=== PATIENT | female | born 1950 | race Caucasian/White ===

== ENCOUNTER 2020-04-23 17:43 | Inpatient (IN) | payer MEDICARE, MEDICAID, SELFPAY ==
--- NOTE | 2020-04-23 | XR_ITS ---
EXAMINATION: 1. LEFT WRIST. 2. LEFT ELBOW. CLINICAL INFORMATION: Fracture of distal radius and ulna COMPARISON: Left forearm today, 7:05 PM TECHNIQUE: 1. Left wrist. 3 views 2. Left elbow. 3 views FINDINGS: 1. Left wrist. There is a comminuted intra-articular displaced fracture of the distal radius and ulna. There is dorsal angulation and dorsal displacement of distal fracture fragment. 2. Left elbow. No fracture dislocation of the elbow. No joint effusion. IMPRESSION: 1. Left wrist. Comminuted intra-articular displaced fracture of the distal radius and ulna. 2. Left elbow. No acute abnormality.
--- NOTE | 2020-04-23 | XR_ITS ---
EXAMINATION: XR WRIST, LEFT CLINICAL INFORMATION: Follow-up fracture post reduction COMPARISON: Same day earlier study TECHNIQUE: Two views of the left wrist. FINDINGS: No evidence of change in fracture position. Comminuted fracture distal radius. Displacement of the proximal fracture fragment ventrally. Mild ventral angulation. There is impaction. Ulnar fracture is unchanged in position. Impacted. IMPRESSION: Casted fractures of the distal radius and ulna. No significant change in position
[2020-04-23 17:55] VITALS: BP 104/65; PULSE 127; PULSE 93; RESP 16; TEMP 36.7; O2SAT 97; O2SAT 98; BMI 48.8
--- NOTE | 2020-04-23 19:00 | XR_ITS ---
EXAMINATION: XR FOREARM, LEFT CLINICAL INFORMATION: Fall COMPARISON: None TECHNIQUE: AP and lateral views of the left forearm were obtained. FINDINGS: There is a impacted fracture of the distal radius as well as ulna with dorsal angulation and lateral displacement. It is difficult to say if the radius fracture involves the radiocarpal joint. Wrist radiographs would be helpful. Marked soft tissue swelling is seen. The remainder of the radius and ulna appear normal IMPRESSION: Fractures of the distal radius and ulna as described above
--- NOTE | 2020-04-23 19:02 | ED.FALL ---
HPI - Fall General Chief Complaint: Fall <Shiraz Dainels DO - Last Filed: 04/24/20 05:32> Stated Complaint: FALL <Shiraz Daniels DO - Last Filed: 04/24/20 05:32> Time Seen by Provider: 04/23/20 19:02 <Shiraz Daniels DO - Last Filed: 04/24/20 05:32> Source: patient <Joan Trevino NP - Last Filed: 04/24/20 03:31> Mode of arrival: EMS <Joan Trevino NP - Last Filed: 04/24/20 03:31> Limitations: no limitations <Joan Trevino NP - Last Filed: 04/24/20 03:31> History of Present Illness HPI Narrative: 69-year-old female presents the emergency department with left arm pain, visible bruising and deformity after a fall. Stated that she was at home, tripped over her walker and landed on her outstretched arm. She does not report hitting her head, does not report loss of consciousness, but states to have 10/10 pain to the left wrist. <Joan Trevino NP - Last Filed: 04/24/20 03:31> MD complaint: fall <Joan Trevino NP - Last Filed: 04/24/20 03:31> Onset (ago): minute(s) (Just prior to arrival) <Joan Trevino NP - Last Filed: 04/24/20 03:31> Fall from: standing <Joan Trevino NP - Last Filed: 04/24/20 03:31> Fall witnessed: no <Joan Trevino NP - Last Filed: 04/24/20 03:31> Place fall occurred: home <Joan Trevino NP - Last Filed: 04/24/20 03:31> Loss of consciousness: none <Joan Trevino NP - Last Filed: 04/24/20 03:31> Prolonged down time: no <Joan Trevino NP - Last Filed: 04/24/20 03:31> Symptoms prior to fall: none <Joan Trevino NP - Last Filed: 04/24/20 03:31> Context: tripped/slipped <Joan Trevino NP - Last Filed: 04/24/20 03:31> Location of injury: other (Left wrist, elbow) <Joan Trevino NP - Last Filed: 04/24/20 03:31> Severity: severe <Joan Trevino NP - Last Filed: 04/24/20 03:31> Severity scale (1-10): 10 <Joan Trevino NP - Last Filed: 04/24/20 03:31> Quality: aching and throbbing <Joan Trevino NP - Last Filed: 04/24/20 03:31> Associated symptoms (after fall): denies <Joan Trevino NP - Last Filed: 04/24/20 03:31> Related Data Home Medications: Home Medications Medication Instructions Recorded Confirmed tramadol 50 - 100 mg PO Q6-8H PRN 04/23/20 04/24/20 allopurinol 1 tab PO BID 04/24/20 04/24/20 cholecalciferol (vitamin D3) 25 mcg PO DAILY 04/24/20 04/24/20 cyanocobalamin (vitamin B-12) 1 tab PO DAILY 04/24/20 04/24/20 [Vitamin B-12] furosemide 1 tab PO BID 04/24/20 04/24/20 hydroxyzine HCl 25 mg PO QID PRN 04/24/20 04/24/20 omeprazole 1 cap PO BID 04/24/20 04/24/20 spironolactone 1 tab PO DAILY 04/24/20 04/24/20 thiamine mononitrate (vit B1) 1 tab PO DAILY 04/24/20 04/24/20 [Vitamin B-1 (mononitrate)] <DO Stewart Menard Last Filed: 04/24/20 05:32> Allergies/Adverse Reactions: Allergies Allergy/AdvReac Type Severity Reaction Status Date / Time No Known Allergies Allergy Unverified 04/01/20 19:02 [No Known Allergies*] <DO Stewart Menard Last Filed: 04/24/20 05:32> Review of Systems Review of Systems: Constitutional: No Fever, No Chills ENT/Mouth: No Ear Pain, No Hoarseness, No sore throat Eyes: No Eye Pain, No Swelling, No Redness, No Foreign Body Cardiovascular: No Chest Pain, No SOB Respiratory: No Cough, No Dyspnea Gastrointestinal: No Nausea, No Vomiting, No Diarrhea, No abdominal Pain Genitourinary: No Dysuria, No Hematuria Musculoskeletal: positive joint pain to the left wrist, left elbow, swelling to the left wrist, No Myalgias Skin: Abrasion and ecchymosis noted to left lateral elbow, ecchymosis noted to the left wrist, No Skin lacerations, No rash Neuro: No Weakness, No Numbness, No Paresthesias, No Loss of Consciousness, No Dizziness, No Headache Psych: No Anxiety/Panic, No Depression Heme/Lymph: no easy bruising, no Lymphadenopathy Endocrine: No Polyuria, No Polydipsia <Joan Trevino NP - Last Filed: 04/24/20 03:31> FORMERLY [facility], [facility] Past Medical History Attestation statement: The following information was validated with the patient. <Joan Trevino NP - Last Filed: 04/24/20 03:31> Medical History: Medical History No known health problems <Shiraz Daniels DO - Last Filed: 04/24/20 05:32> Social History Social History: Social History Alcohol intake: former Smoked in Last 30 Days: No Use of substances other than those prescribed or required for medical reasons: No Advance Directives: No Advance Directives Information Provided: Yes <Shiraz Daniels DO - Last Filed: 04/24/20 05:32> Physical Exam Vital Signs and I&O and Narrative: Vital Signs and I&O: Vital Signs Temp 98 F 04/24/20 02:19 Pulse 98 04/24/20 05:31 Resp 16 04/24/20 05:31 BP 91/70 04/24/20 05:31 Pulse Ox 94 04/24/20 02:19 Intake & Output 04/23/20 04/23/20 04/24/20 06:59 18:59 06:59 Intake Total 1000 / 1000 Balance 1000 / 1000 Weight 113.469 kg Intake: Intake, IV Amoun t 1000 / 1000 0.9 % Sodium C hloride 1,000 ml 1000 / 1000 @ 999 mls/hr I VCONT .Q1H1M [facility] Rx#:[id number] Body Mass Index 48.8 <Shiraz Daniels DO - Last Filed: 04/24/20 05:32> Vital Signs and I&O: Vital Signs Temp 98 F 04/24/20 02:19 Pulse 98 04/24/20 05:31 Resp 16 04/24/20 05:31 BP 91/70 04/24/20 05:31 Pulse Ox 94 04/24/20 02:19 Intake & Output 04/23/20 04/23/20 04/24/20 06:59 18:59 06:59 Intake Total 1000 / 1000 Balance 1000 / 1000 Weight 113.469 kg Intake: Intake, IV Amoun t 1000 / 1000 0.9 % Sodium C hloride 1,000 ml 1000 / 1000 @ 999 mls/hr I VCONT .Q1H1M [facility] Rx#:[id number] Body Mass Index 48.8 <Joan Trevino NP - Last Filed: 04/24/20 03:31> Appearance: Alert. Oriented X3. Mild distress secondary to pain to the left arm. Eyes: Pupils equal, round and reactive to light. ENT: Pharynx normal. Neck: Normal inspection. Neck supple. CVS: Normal heart rate and rhythm. Pulses normal. Respiratory: No respiratory distress. Breath sounds normal. Abdomen: Soft and nontender. Skin: Skin warm and dry. Normal skin color. Normal skin turgor. Extremities: Left elbow abrasion and ecchymosis, left wrist deformity with ecchymosis circumferentially and down the fingers. Has full range of motion and brisk capillary refill. Neuro: Oriented X 3. No motor deficit. No sensory deficit. <Joan Trevino NP - Last Filed: 04/24/20 03:31> Course Course Course Narrative: at 02:30 sign-out was given to me in regards to patient status post fall and was going to wait for Case Management the morning. Basic labs came back positive for troponin. EKG shows interpreted by me as sinus tachycardia at 01:03 with a rightward axis no ST T elevations or depressions. Re-examine the patient shows no current chest pain at this point will need to be admitted for further evaluation I spoke with Dr. Askew for admission <Shiraz Daniels DO - Last Filed: 04/24/20 05:32> 69-year-old female presents via EMS with fall and injury to the left upper extremity, elbow, and wrist after tripping over her walker. At this time she does not describe any chest pain or pressure, palpitations, shortness of breath, abdominal pain, abdominal distention, dizziness, lightheadedness, or weakness. She reports that this was a stupid mistake and that she was moving too fast. At this time she is reporting 10/10 pain to the left forearm and wrist. X-rays positive for displaced fracture of the radius and ulna. Contact with on-call Orthopedics, they're requesting that we reduce and patient will follow-up in the office on Sunday. Case discussed with Dr. Levin. Description of reduction explained to patient, patient agrees to plan of care, we'll use IM ketamine. Consent was signed. Dr. Levin at bedside, attempted to reduce fracture, multiple attempts made by this NATURE PHOTOGRAPHER and Dr. Levin. Patient was splinted, repeat x-ray does not show any significant reduction. Second discussion with Orthopedics, plan continues to stay the same, they request that patient follow-up on Sunday in the office. We'll order case management director social, CBC, Chem 7, EKG and troponin. Evaluation of capillary refill after splinting, neurovascularly intact. Sign out to Dr. Daniels at 2:00 a.m.. <Joan Trevino NP - Last Filed: 04/24/20 03:31> Procedures Orthopedic Fracture Reduction Fracture #1: Time Out Performed: Yes <DULCE Escalera Last Filed: 04/24/20 03:31> Side: left <Joan Trevino NP - Last Filed: 04/24/20 03:31> Fracture Reduction Location: radius and ulna <DULCE Escalera Last Filed: 04/24/20 03:31> Analgesia: procedural sedation and nerve block <Joan Trevino NP - Last Filed: 04/24/20 03:31> Technique: direct manipulation <DULCE Escalera Last Filed: 04/24/20 03:31> Post Reduction X-rays Demonstrate: other (No significant reduction) <DULCE Escalera Last Filed: 04/24/20 03:31> Post-reduction neuro exam: intact <Joan Trevino NP - Last Filed: 04/24/20 03:31> Post-reduction vascular exam: intact <Joan Trevino NP - Last Filed: 04/24/20 03:31> Splint Applied: Yes <Joan Trevino NP - Last Filed: 04/24/20 03:31> Patient Tolerated Procedure: well <Joan Trevino NP - Last Filed: 04/24/20 03:31> MDM - Fall Differential Diagnosis Differential diagnosis: Likely fracture and compression fracture <Joan Trevino NP - Last Filed: 04/24/20 03:31> Medical Records Attestation: I reviewed the patient's medical records. <Joan Trevino NP - Last Filed: 04/24/20 03:31> Lab Data Attestation: I reviewed the patient's lab results. <Joan Trevino NP - Last Filed: 04/24/20 03:31> Result diagrams: : 04/24/20 02:00 04/24/20 02:00 <Shiraz Daniels DO - Last Filed: 04/24/20 05:32> Labs: Lab Results 04/24/20 04/24/20 04/24/20 Range/Units 02:00 02:00 02:00 WBC 8.8 (4.8-10.8) X10*3/uL RBC 3.80 L (4.20-5.50) X10*6/uL Hgb 12.4 (12.0-16.0) g/dl Hct 37.7 (37-47) % MCV 99.2 H (80-98) fL MCH 32.6 (27.0-33.0) pg MCHC 32.9 (31.0-35.0) g/dl RDW 14.2 (11.0-16.0) % Plt Count 125 L (160-400) X10*3/uL MPV 10.4 (9.4-12.3) fL Immature Gran % (Auto) 0.5 H (0.0-0.4) % Neut % (Auto) 81.6 H (45-73) % Lymph % (Auto) 9.7 L (20-40) % [place] % (Auto) 7.8 (2-11) % Eos % (Auto) 0.1 (0-4) % Baso % (Auto) 0.3 (0-2) % Lymph # (Auto) 0.9 L (1.2-4.9) X10*3/uL [place] # (Auto) 0.7 (0.1-1.2) X10*3/uL Eos # (Auto) 0.0 (0.0-0.4) X10*3/uL Baso # (Auto) 0.0 (0.0-0.2) X10*3/uL Abs Immat Gran (auto) 0.04 H (0.00-0.03) X10*3/uL Absolute Neuts (auto) 7.2 (2.0-8.3) X10*3/uL Absolute Nucleated RBC 0.000 (0.0-0.012) X10*3/uL Nucleated RBC % (auto) 0.0 (0.0-0.2) /100WBC Sodium 138 (135-145) mmol/L Potassium 4.3 (3.3-5.1) mmol/l Chloride 96 (96-108) mmol/L Carbon Dioxide 32 H (22-29) mmol/L Anion Gap 14 (12-20) BUN 17 H (9-16) mg/dL Creatinine 1.39 (0.5-1.4) mg/dL Estim Creat Clear Calc 44.4 Estimated GFR 38 Random Glucose 105 (60-115) mg/dL Calcium 7.3 L (8.4-10.2) mg/dL Total Creatine Kinase 92 (26-140) U/L Troponin I High Sens 411.7 H (<3.5-17.0) ng/L <Shiraz Daniels, DO - Last Filed: 04/24/20 05:32> Lab Results 04/24/20 04/24/20 04/24/20 Range/Units 02:00 02:00 02:00 WBC 8.8 (4.8-10.8) X10*3/uL RBC 3.80 L (4.20-5.50) X10*6/uL Hgb 12.4 (12.0-16.0) g/dl Hct 37.7 (37-47) % MCV 99.2 H (80-98) fL MCH 32.6 (27.0-33.0) pg MCHC 32.9 (31.0-35.0) g/dl RDW 14.2 (11.0-16.0) % Plt Count 125 L (160-400) X10*3/uL MPV 10.4 (9.4-12.3) fL Immature Gran % (Auto) 0.5 H (0.0-0.4) % Neut % (Auto) 81.6 H (45-73) % Lymph % (Auto) 9.7 L (20-40) % [place] % (Auto) 7.8 (2-11) % Eos % (Auto) 0.1 (0-4) % Baso % (Auto) 0.3 (0-2) % Lymph # (Auto) 0.9 L (1.2-4.9) X10*3/uL [place] # (Auto) 0.7 (0.1-1.2) X10*3/uL Eos # (Auto) 0.0 (0.0-0.4) X10*3/uL Baso # (Auto) 0.0 (0.0-0.2) X10*3/uL Abs Immat Gran (auto) 0.04 H (0.00-0.03) X10*3/uL Absolute Neuts (auto) 7.2 (2.0-8.3) X10*3/uL Absolute Nucleated RBC 0.000 (0.0-0.012) X10*3/uL Nucleated RBC % (auto) 0.0 (0.0-0.2) /100WBC Sodium 138 (135-145) mmol/L Potassium 4.3 (3.3-5.1) mmol/l Chloride 96 (96-108) mmol/L Carbon Dioxide 32 H (22-29) mmol/L Anion Gap 14 (12-20) BUN 17 H (9-16) mg/dL Creatinine 1.39 (0.5-1.4) mg/dL Estim Creat Clear Calc 44.4 Estimated GFR 38 Random Glucose 105 (60-115) mg/dL Calcium 7.3 L (8.4-10.2) mg/dL Total Creatine Kinase 92 (26-140) U/L Troponin I High Sens 411.7 H (<3.5-17.0) ng/L <Joan Trevino NP - Last Filed: 04/24/20 03:31> Critical Care Time Critical Care Time Critical Care Time: Yes <Joan Trevino NP - Last Filed: 04/24/20 03:31> Total Critical Care Time: 35 <Joan Trevino NP - Last Filed: 04/24/20 03:31> Attestation: I personally attest to this time spent taking care of the patient <Joan Trevino NP - Last Filed: 04/24/20 03:31> Discharge Plan Discharge Clinical Impression: Fall, Non-ST elevation (NSTEMI) myocardial infarction Fracture of wrist Qualifiers: Fracture type: closed Laterality: right <DO Stewart Menard Last Filed: 04/24/20 05:32> Patient Disposition: Admitted As Inpatient <DO Stewart Menard Last Filed: 04/24/20 05:32>
--- NOTE | 2020-04-23 19:09 | PC.NURSE ---
Assumed care of p. pt resting in stretcher c/o pain to left fa. +bruising to fa. pt denies hitting head. pt is requesting pain meds. pt alert, respirations easy, n/l. skin w/d. x-ray in room for portable x-ray.
[2020-04-23 19:14] VITALS: BP 121/75; RESP 18; O2SAT 97
[2020-04-23] MEDS: Gabapentin 300 MG CAPSULE PO (20:53)
[2020-04-23] MEDS: oxyCODONE HCl Immed Release 5 MG TABLET PO (20:53)
[2020-04-23] MEDS: Morphine Sulfate 4 MG/ML CARTRIDGE IVPUSH (21:44)
[2020-04-23] MEDS: ondansetron HCL 4 MG/2 ML VIAL IVPUSH (21:45)
[2020-04-23 21:57] VITALS: BP 130/85; PULSE 101; RESP 16; O2SAT 97
[2020-04-23] MEDS: Lidocaine HCl 2 % MPF 5 ML VIAL 10 ML SUBCUT (23:30)
[2020-04-23] MEDS: Ketamine HCl 500 MG/5 ML VIAL 227 MG IM ×2 (23:30→23:40)
[2020-04-23 23:31] VITALS: BP 132/58; PULSE 100; RESP 16; O2SAT 95
--- NOTE | 2020-04-23 23:35 | PC.NURSE ---
Pt medicated with IM Ketamine to left and right deltoid by this RN and RETURN CLERK. MD and RT at bedside for procedure. VSS. Continue to monitor.
--- NOTE | 2020-04-23 23:40 | PC.NURSE ---
Pt medicated with second dose of Ketamine 227 mg IM per verbal order by MD.
[2020-04-23 23:55] VITALS: BP 155/105; PULSE 98; RESP 22; O2SAT 97
--- NOTE | 2020-04-23 23:55 | PC.NURSE ---
FX reduced, splint applied. XRay at bedside.
[2020-04-24] VITALS (11 sets, daily range): BP systolic 91–135; BP diastolic 61–78; PULSE 92–135; RESP 16–20; TEMP 36.2–36.8; O2SAT 94–100
--- NOTE | 2020-04-24 | XR_ITS ---
EXAMINATION: XR CHEST CLINICAL INFORMATION: Weakness COMPARISON: None TECHNIQUE: Frontal view of the chest was obtained. FINDINGS: Cardiac leads overlie the chest. The lungs are well expanded. No consolidation, edema, or effusion. No pneumothorax. The cardiomediastinal silhouette is borderline prominent. No acute osseous abnormality. IMPRESSION: No acute pulmonary finding.
--- NOTE | 2020-04-24 00:18 | PC.NURSE ---
Pt remains under the influence of IM Ketamine at this time. Pt is awake, +nystagmus, pt is able to tell this RN her name and follow simple directions but is not oriented. VSS however pt is noted to be tachycardiac 130-140. MD aware. IVF hung per verbal order from MD. Continue to monitor.
[2020-04-24] MEDS: 0.9 % Sodium Chloride 1,000 ML 999 ML IVCONT ×2 (00:20→02:43)
--- NOTE | 2020-04-24 01:47 | PC.NURSE ---
Pt found sitting upright in bed, CAOx4, speaking full sentences, following all commands. Pt denies pain at this time. VSS. Pt aware of plan for case management consult in the morning. Continue to monitor.
--- NOTE | 2020-04-24 01:52 | PC.NURSE ---
MANAGEMENT TRAINEE at bedside explaining results and plan of care. Pt aware of plan for EKG and labs.
--- NOTE | 2020-04-24 01:53 | ECG_ITS ---
Test Reason : CASE MANAGEMENT Blood Pressure : / mmHG Vent. Rate : 103 BPM Atrial Rate : 103 BPM P-R Int : 174 ms QRS Dur : 062 ms QT Int : 342 ms P-R-T Axes : 031 216 016 degrees QTc Int : 448 ms Sinus tachycardia Low voltage QRS RSR' or QR pattern in V1 suggests right ventricular conduction delay Right superior axis deviation Abnormal ECG No previous ECGs available Referred By: Joan Trevino Electronically Signed By:BHUPENDRA CANTU MD
[2020-04-24 02:08] LABS: Basophils Percent Auto 0.3 % (0-2); Eosinophils Percent Auto 0.1 % (0-4); MANUAL DIFF FLAG NO; PLT CLUMP 1; SCAN SMEAR FLAG 1
[2020-04-24 02:10] LABS: Hematocrit 37.7 % (37-47); Hemoglobin 12.4 g/dl (12.0-16.0); Imm Gran Abs Auto 0.04 X10*3/uL (0.00-0.03); Imm Gran Pct Auto 0.5 % (0.0-0.4); Lymphocytes Absolute Auto 0.9 X10*3/uL (1.2-4.9); Lymphocytes Percent Auto 9.7 % (20-40); Mean Corpuscular HGB Conc 32.9 g/dl (31.0-35.0); Mean Corpuscular Hemoglobin 32.6 pg (27.0-33.0); Mean Corpuscular Volume 99.2 fL (80-98); Mean Platelet Volume 10.4 fL (9.4-12.3); Monocytes Absolute Auto 0.7 X10*3/uL (0.1-1.2); Monocytes Percent Auto 7.8 % (2-11); Neutrophils Absolute Auto 7.2 X10*3/uL (2.0-8.3); Neutrophils Percent Auto 81.6 % (45-73); Platelet Count 125 X10*3/uL (160-400); Red Cell Distribution Width 14.2 % (11.0-16.0); White Blood Count 8.8 X10*3/uL (4.8-10.8)
--- NOTE | 2020-04-24 02:20 | PC.NURSE ---
Labs obtained. EKG completed by this RN. Pt noted to be diaphoretic, clothes soaked in sweat. Pt denies pain/discomfort. Pt changed into a hospital gown, icepack provided to neck. VSS. Pt requesting food/drink, given a sandwich and gingerale. Continue to monitor.
[2020-04-24 02:32] LABS: Anion Gap 14 (12-20); Blood Urea Nitrogen 17 mg/dL (9-16); Calcium 7.3 mg/dL (8.4-10.2); Carbon Dioxide 32 mmol/L (22-29); Chloride 96 mmol/L (96-108); Creatinine Clr Calc Pharmacy 44.4; Estimated Glomerular Filt Rate 38; Glucose Random 105 mg/dL (60-115); Potassium 4.3 mmol/l (3.3-5.1); Sodium 138 mmol/L (135-145)
[2020-04-24 02:39] LABS: Troponin-I High Sensitivity 411.7 ng/L (<3.5-17.0)
--- NOTE | 2020-04-24 03:16 | PC.NURSE ---
Due to elevated Troponin, no longer CM, plan for admission.
--- NOTE | 2020-04-24 03:35 | PC.NURSE ---
Addendum entered by Susan Bojorquez 04/24/20 03:46: aware. Original Note: Pt refusing ASA at this time, states she is unable to take it due to her kidneys. Pt states it's a blood thinner, I can't take it!! Pt resting comfortably in bed, denies pain/discomfort at this time.
--- NOTE | 2020-04-24 04:32 | PC.NURSE ---
Report given to ADEEL Watson. Hospitalist at bedside.
--- NOTE | 2020-04-24 04:50 | PM.IMHP ---
History of Present Illness Date of Service: 04/24/20 Chief Complaint: Fall 69 y/o female who presented from home s/p fall. Per history provided by the patient, 2 days ago (On night), tripped and fell on the floor hitting her left hand on impact. Patient reports that initially felt a mild discomfort but swelling and pain has been worsening since then for what decided to come today for further evaluation. Initial vitals showed tachycadia of 101-135 bpm, BP 119/65 mmHg. Patient is known to have a hx of liver disease secondary to alcohol abuse and Kidney disease. Initial blood work showed troponin of 411, initial EKG shows Low voltage QRS, Right axis deviation, no evidence of any acute changes. Patient was awaiting for case management to address placement but given elevated troponin medicine is called for admission. Orthopedic consulted for left wrist fracture identified on imaging. Patient seen and examined at the bedside, ROS as above otherwise negative. Physical exam positive for left wrist splint. Patient laying down comfortably in bed in no acute distress. PMHX: Gout, Neuropathy, chronic pain, Alcoholic liver disease with cirrhosis, Kidney disease PSx: none Toxic habits: Alcohol abuse in the past, no hx of smoking or IVDA Review of Systems Musculoskeletal: Musculoskeletal: Reports other (left wrist pain/swelling ) FORMERLY [facility] Medical History No known health problems Functional capacity: independent ambulation Social History Alcohol intake: former Smoked in Last 30 Days: No Use of substances other than those prescribed or required for medical reasons: No Advance Directives: No Advance Directives Information Provided: Yes Meds Allergies Allergy/AdvReac Type Severity Reaction Status Date / Time No Known Allergies Allergy Unverified 04/01/20 19:02 [No Known Allergies*] Home Medications Medication Instructions Recorded Confirmed Type tramadol 50 - 100 mg PO Q6-8H PRN 04/23/20 04/24/20 History allopurinol 1 tab PO BID 04/24/20 04/24/20 History cholecalciferol (vitamin D3) 25 mcg PO DAILY 04/24/20 04/24/20 History cyanocobalamin (vitamin B-12) 1 tab PO DAILY 04/24/20 04/24/20 History [Vitamin B-12] furosemide 1 tab PO BID 04/24/20 04/24/20 History hydroxyzine HCl 25 mg PO QID PRN 04/24/20 04/24/20 History omeprazole 1 cap PO BID 04/24/20 04/24/20 History spironolactone 1 tab PO DAILY 04/24/20 04/24/20 History thiamine mononitrate (vit B1) 1 tab PO DAILY 04/24/20 04/24/20 History [Vitamin B-1 (mononitrate)] Physical Exam Vital Signs and Narrative: Vital Signs: Last Vital Signs Temp 98 F 04/24/20 02:19 Pulse 111 H 04/24/20 02:19 Resp 20 04/24/20 02:19 BP 119/65 04/24/20 02:19 Pulse Ox 94 04/24/20 02:19 Body Mass Index 48.8 Const: General: cooperative, healthy appearing and comfortable Orientation/consciousness: oriented to person, oriented to place and oriented to time HENMT: Head: Yes normal to inspection Eyes: General: appearance normal, both eyes and all related structures Neck: Yes normal visual inspection Chest: Chest palpation & inspection: normal inspection of the chest Resp: Effort & Inspection: normal respiratory effort Cardio: Jugular venous distension: no JVD Rhythm: regular rhythm Heart sounds: S1 normal heart sound present and S2 normal heart sound present GI: Inspection: Yes normal to inspection Skin: General skin exam: no rashes or lesions noted Neuro: General: oriented to person, oriented to place and oriented to time Extrem: Left upper extremity: wrist (left wrist swelling/tenderness with splint in place ) Psych: Appearance: grossly normal Results Labs Labs: Laboratory Tests 04/24/20 04/24/20 04/24/20 02:00 02:00 02:00 WBC 8.8 RBC 3.80 L Hgb 12.4 Hct 37.7 MCV 99.2 H MCH 32.6 MCHC 32.9 RDW 14.2 Plt Count 125 L MPV 10.4 Immature Gran % (Auto) 0.5 H Neut % (Auto) 81.6 H Lymph % (Auto) 9.7 L [place] % (Auto) 7.8 Eos % (Auto) 0.1 Baso % (Auto) 0.3 Lymph # (Auto) 0.9 L [place] # (Auto) 0.7 Eos # (Auto) 0.0 Baso # (Auto) 0.0 Abs Immat Gran (auto) 0.04 H Absolute Neuts (auto) 7.2 Absolute Nucleated RBC 0.000 Nucleated RBC % (auto) 0.0 Sodium 138 Potassium 4.3 Chloride 96 Carbon Dioxide 32 H Anion Gap 14 BUN 17 H Creatinine 1.39 Estim Creat Clear Calc 44.4 Estimated GFR 38 Random Glucose 105 Calcium 7.3 L Total Creatine Kinase 92 Troponin I High Sens 411.7 H Assessment and Plan (1) Non-ST elevation (NSTEMI) myocardial infarction: Status: Acute (2) Fall: Status: Acute (3) Fracture of wrist: Qualifiers: Fracture type: closed Laterality: right Status: Acute (4) Gout: Status: Acute (5) Hypertension: Status: Acute Left wrist fracture s/p fall Pain control Elevate LUE to decreased swelling rest of the management per Ortho NSTEMI likely secondary to demand ischemia given tachycardia First troponin ~400 CPK normal Follow up second troponin Follow up Echo classroom monitor EKG showing no acute changes Cardiology consult in the am Hx of Gout continue with allopurinol home dose Hx of HTN continue with lasix home dose continue with spironolactone home dose
--- NOTE | 2020-04-24 05:20 | PC.NURSE ---
medication technician at bedside to obtain repeat Troponin. Pt aware of plan to transfer to [facility].
[2020-04-24 05:59] LABS: Troponin-I High Sensitivity 1334.2 ng/L (<3.5-17.0)
--- NOTE | 2020-04-24 06:53 | PM.EVENT ---
Event Note Event Note: Troponin increased from 411 to 1334. One dose of Aspirin 324 mg was given per ED attending earlier. Occult blood to be obtained stat in the stool and will decide on starting heparin drip. At present patient denies any chest pain. Cardiology answering service called. Awaiting for Dr Urbano call back.
[2020-04-24] MEDS: 0.9 % Sodium Chloride Flush 3 ML SYRINGE IVFLUSH ×2 (07:40→14:19)
[2020-04-24] MEDS: allopurinoL 100 MG TABLET PO ×2 (07:40→21:28)
[2020-04-24] MEDS: Cholecalciferol (Vitamin D3) 25 MCG TABLET PO (07:40)
[2020-04-24] MEDS: Furosemide 20 MG TABLET PO ×2 (07:40→21:27)
[2020-04-24] MEDS: Spironolactone 25 MG TABLET PO (07:41)
[2020-04-24] MEDS: Cyanocobalamin (Vitamin B-12) 100 MCG TABLET PO (08:06)
--- NOTE | 2020-04-24 08:56 | MHC.CM.PN ---
Patient lives alone in a condo and she uses a rollator and w/c to assist with mobility. Patient is active with [facility] and [facility] for MOWs & Homemaking services; her goal is to return home. CM has initiated and will follow for dc planning. IMM addressed with Patient and the original has been given to her and a copy has been placed on the chart. Patient's and Son are her HCP and her PCP is Dr. Brooke Kimbrough from [facility].
[2020-04-24 10:12] LABS: MANUAL DIFF FLAG NO
[2020-04-24] MEDS: oxyCODONE HCl Immed Release 5 MG TABLET PO ×2 (10:19→21:28)
[2020-04-24 10:20] LABS: Basophils Percent Auto 0.3 % (0-2); Eosinophils Percent Auto 0.1 % (0-4); Hematocrit 35.6 % (37-47); Hemoglobin 11.6 g/dl (12.0-16.0); Imm Gran Abs Auto 0.03 X10*3/uL (0.00-0.03); Imm Gran Pct Auto 0.4 % (0.0-0.4); Lymphocytes Absolute Auto 1.1 X10*3/uL (1.2-4.9); Mean Corpuscular HGB Conc 32.6 g/dl (31.0-35.0); Mean Corpuscular Hemoglobin 32.7 pg (27.0-33.0); Mean Corpuscular Volume 100.3 fL (80-98); Mean Platelet Volume 10.4 fL (9.4-12.3); Monocytes Absolute Auto 0.6 X10*3/uL (0.1-1.2); Monocytes Percent Auto 8.1 % (2-11); Neutrophils Absolute Auto 5.8 X10*3/uL (2.0-8.3); Neutrophils Percent Auto 77.1 % (45-73); Platelet Count 112 X10*3/uL (160-400); Red Blood Count 3.55 X10*6/uL (4.20-5.50); Red Cell Distribution Width 14.3 % (11.0-16.0); White Blood Count 7.5 X10*3/uL (4.8-10.8)
--- NOTE | 2020-04-24 10:58 | MHC.CM.PN ---
Patient is not active with [facility] as she thought. Patient states, I think it is Care something). CM is unable to clarify with Patient's PCP, as it is a holiday weekend. CM will follow for dc planning.
[2020-04-24 11:55] LABS: Alanine Aminotransferase 14 U/L (0-31); Albumin Level 3.4 g/dL (3.5-5.0); Alkaline Phosphatase 167 U/L (39-117); Aspartate Amino Transferase 22 U/L (5-31); Bilirubin Direct 0.6 mg/dL (0.0-0.5); Bilirubin Total 0.9 mg/dL (0.0-1.0); Total Protein 5.7 g/dL (6.5-8.0)
--- NOTE | 2020-04-24 12:12 | P.CONCA_ITS ---
History of Present Illness History of Present Illness Date of Consult: April 24, 2020 Chief complaint: mechanical fall, left arm pain Narrative: This is a cardiology consultation regarding elevated troponins. It appears that the patient came with mechanical fall. She tripped and fell hitting her left hand on impact. Then she came to the hospital for evaluation. She was having sinus tachycardia. Troponins were checked and they were found to be elevated and hence we have been asked to see her. Patient herself does not have any anginal-type chest pains or shortness of breath or in fact any other cardiac symptoms at this time. She also denies any prior history of coronary disease myocardial infarction or other cardiac concerns. Review of Systems Review of Systems: Cardiac negative for angina, shortness of breath, palpitations, dizzy spells or syncopal episodes. Remainder of the 10 system review is negative. [facility] Past Medical History Medical History (Updated 04/24/20 @ 12:17 by Preston Urbano MD) Chronic kidney disease Cirrhosis of liver Cognitive capacity: Functional capacity: independent ambulation Family History Pertinent family history: no significant family history pertinent to this admission. Family history: reviewed and not pertinent Social History Social History Household Members: None Housing: Condominium Do you presently have visiting nurse or other home services: Yes Alcohol intake: former Smoking Status: Never smoker Smoked in Last 30 Days: No Patient Interested in Nicotine Replacement: No Patient Given Instructions on How to Stop Smoking: No Use of substances other than those prescribed or required for medical reasons: Yes Currently Displaying Signs/Symptoms of Drug Intoxication Withdrawal: No Any prior treatment program specific to substance use: No Have you been hit, kicked, punched, or otherwise hurt by someone within the past year? If so, by whom?: No Do you feel safe in your current relationship?: Yes Is there a partner from a previous relationship who is making you feel unsafe now?: No Are you made to feel afraid or neglected: No Advance Directives: No Advance Directives Information Provided: Yes Do you have thoughts of harming others: None Do you have a plan to hurt others: No Plan Recently lost weight without trying: No service: No Current occupational status: disabled Meds Allergies Allergy/AdvReac Type Severity Reaction Status Date / Time No Known Allergies Allergy Unverified 04/01/20 19:02 [No Known Allergies*] Home Medications Medication Instructions Recorded Confirmed Type tramadol 50 - 100 mg PO Q6-8H PRN 04/23/20 04/24/20 History allopurinol 1 tab PO BID 04/24/20 04/24/20 History cholecalciferol (vitamin D3) 25 mcg PO DAILY 04/24/20 04/24/20 History cyanocobalamin (vitamin B-12) 1 tab PO DAILY 04/24/20 04/24/20 History [Vitamin B-12] furosemide 1 tab PO BID 04/24/20 04/24/20 History gabapentin 1 cap PO TID 04/24/20 04/24/20 History hydroxyzine HCl 25 mg PO QID PRN 04/24/20 04/24/20 History omeprazole 1 cap PO BID 04/24/20 04/24/20 History spironolactone 1 tab PO DAILY 04/24/20 04/24/20 History thiamine mononitrate (vit B1) 1 tab PO DAILY 04/24/20 04/24/20 History [Vitamin B-1 (mononitrate)] Physical Exam Vital Signs: Vital Signs: Vital Signs Temp Pulse Resp BP Pulse Ox 04/24/20 08:00 97.4 F 108 H 18 102/62 96 04/24/20 07:41 112 H 100/64 04/24/20 06:01 97.1 F 105 H 20 112/61 04/24/20 05:31 98 16 91/70 04/24/20 02:19 98 F 111 H 20 119/65 94 04/24/20 01:43 105 H 20 115/75 98 04/24/20 00:27 100 04/24/20 00:25 135 H 135/74 04/23/20 23:55 98 22 H 155/105 H 97 04/23/20 23:31 100 16 132/58 L 95 04/23/20 21:57 101 H 16 130/85 97 04/23/20 19:14 18 121/75 97 04/23/20 17:55 98.1 F 93 16 104/65 97 Body Mass Index 48.8 Comfortable, no distress No pallor, icterus or cyanosis HEENT -unremarkable JVD- normal Cardiac- normal heart sounds, no murmurs, gallops or rubs, normal PMI Respiratory-normal breath sounds bilaterally, no crackles, no wheeze Abdomen- soft, nontender Neuro- alert and oriented Lower extremities- warm well perfused Results Labs and Meds Result diagrams: 04/24/20 09:57 04/24/20 02:00 Lab results: Laboratory Results - last 24 hr 04/24/20 04/24/20 04/24/20 02:00 02:00 02:00 WBC 8.8 RBC 3.80 L Hgb 12.4 Hct 37.7 MCV 99.2 H MCH 32.6 MCHC 32.9 RDW 14.2 Plt Count 125 L MPV 10.4 Immature Gran % (Auto) 0.5 H Neut % (Auto) 81.6 H Lymph % (Auto) 9.7 L [place] % (Auto) 7.8 Eos % (Auto) 0.1 Baso % (Auto) 0.3 Lymph # (Auto) 0.9 L [place] # (Auto) 0.7 Eos # (Auto) 0.0 Baso # (Auto) 0.0 Abs Immat Gran (auto) 0.04 H Absolute Neuts (auto) 7.2 Absolute Nucleated RBC 0.000 Nucleated RBC % (auto) 0.0 Sodium 138 Potassium 4.3 Chloride 96 Carbon Dioxide 32 H Anion Gap 14 BUN 17 H Creatinine 1.39 Estim Creat Clear Calc 44.4 Estimated GFR 38 Random Glucose 105 Calcium 7.3 L Total Bilirubin 0.9 Direct Bilirubin 0.6 H AST 22 ALT 14 Alkaline Phosphatase 167 H Total Creatine Kinase 92 Troponin I High Sens 411.7 H Total Protein 5.7 L Albumin 3.4 L 04/24/20 04/24/20 05:21 09:57 WBC 7.5 RBC 3.55 L Hgb 11.6 L Hct 35.6 L MCV 100.3 H MCH 32.7 MCHC 32.6 RDW 14.3 Plt Count 112 L MPV 10.4 Immature Gran % (Auto) 0.4 Neut % (Auto) 77.1 H Lymph % (Auto) 14.0 L [place] % (Auto) 8.1 Eos % (Auto) 0.1 Baso % (Auto) 0.3 Lymph # (Auto) 1.1 L [place] # (Auto) 0.6 Eos # (Auto) 0.0 Baso # (Auto) 0.0 Abs Immat Gran (auto) 0.03 Absolute Neuts (auto) 5.8 Absolute Nucleated RBC 0.000 Nucleated RBC % (auto) 0.0 Sodium Potassium Chloride Carbon Dioxide Anion Gap BUN Creatinine Estim Creat Clear Calc Estimated GFR Random Glucose Calcium Total Bilirubin Direct Bilirubin AST ALT Alkaline Phosphatase Total Creatine Kinase Troponin I High Sens 1334.2 H D Total Protein Albumin Assessment and Plan (1) Non-ST elevation (NSTEMI) myocardial infarction: Status: Acute (2) Fall: Status: Acute EKG with sinus tachycardia, possible right ventricular hypertrophy and right superior axis deviation. No clear ischemic findings noted. Troponin el evation is probably demand related type 2 NSTEMI. We will get an echocardiogram on Sunday. Otherwise can hold off on IV heparin considering the history of cirrhosis.
[2020-04-24 13:28] LABS: INTERNATIONAL NORM RATIO 1.2 (0.9-1.1)
[2020-04-24 13:31] LABS: D Dimer 388 NG/ML
[2020-04-24] MEDS: Gabapentin 300 MG CAPSULE PO ×2 (14:18→21:28)
--- NOTE | 2020-04-24 15:58 | HO.PM.IMPN ---
Subjective Subjective Date of Service: 04/24/20 Interval History: seen and examined denies chest pain now or at home before fall complaining of wrist pain but otherwise okay Review of Systems General - no fevers or chills Cardiovascular - no chest pain Respiratory - no shortness of breath or cough Abdominal- no abdominal pain, nausea, vomiting, diarrhea ext - wrist pain Physical Exam Vital Signs: Vital Signs: Vital Signs Temp Pulse Resp BP Pulse Ox 04/24/20 15:39 98.2 F 98 20 110/78 98 04/24/20 12:00 97.2 F 92 16 104/61 95 04/24/20 08:00 97.4 F 108 H 18 102/62 96 04/24/20 07:41 112 H 100/64 04/24/20 06:01 97.1 F 105 H 20 112/61 04/24/20 05:31 98 16 91/70 04/24/20 02:19 98 F 111 H 20 119/65 94 04/24/20 01:43 105 H 20 115/75 98 04/24/20 00:27 100 04/24/20 00:25 135 H 135/74 04/23/20 23:55 98 22 H 155/105 H 97 04/23/20 23:31 100 16 132/58 L 95 04/23/20 21:57 101 H 16 130/85 97 04/23/20 19:14 18 121/75 97 04/23/20 17:55 98.1 F 93 16 104/65 97 Body Mass Index 48.8 General - no acute distress, appears comfortable Cardiovascular - regular rate and rhythm, S1-S2 Lungs - normal respiratory effort, clear to auscultation bilaterally, no wheezing Abdomen - soft, nontender, no rebound regarding Extremities - L arm in splint Neuro - awake and alert, no focal deficits Objective Data Current Medications Generic Name Dose Route Start Last Admin Trade Name Rahulq PRN Reason Stop Dose Admin Allopurinol 100 mg 04/24/20 09:00 04/24/20 07:40 Allopurinol 100 Mg Tablet PO 100 mg BID [facility] Administration Cyanocobalamin 100 mcg 04/24/20 09:00 04/24/20 08:06 Cyanocobalamin (Vitamin B-12) 100 Mcg Tablet PO 100 mcg DAILY [facility] Administration Furosemide 20 mg 04/24/20 09:00 10/10/20 07:40 Furosemide 20 Mg Tablet PO 20 mg BID [facility] Administration Protocol Gabapentin 300 mg 04/24/20 15:00 04/24/20 14:18 Gabapentin 300 Mg Capsule PO 300 mg TID [facility] Administration Heparin Sodium (Porcine) 5,000 unit 04/24/20 05:09 04/24/20 14:18 Heparin Sodium,Porcine 5,000 Unit/Ml Vial SUBCUT Not Given Q8H [facility] Omeprazole 20 mg 04/24/20 09:00 04/24/20 07:43 Omeprazole 20 Mg/10 Ml Susp.Recon PO 20 mg BID [facility] Administration Oxycodone HCl 5 mg 04/24/20 08:28 04/24/20 10:19 Oxycodone Hcl Immed Release 5 Mg Tablet PO 5 mg Q6H PRN Administration Pain, Moderate (Pain Scale 4-6 Sodium Chloride 3 ml 04/24/20 08:00 04/24/20 14:19 0.9 % Sodium Chloride Flush 3 Ml Syringe IVFLUSH 3 ml QSHIFT [facility] Administration Spironolactone 25 mg 04/24/20 09:00 04/24/20 07:41 Spironolactone 25 Mg Tablet PO 25 mg DAILY [facility] Administration Protocol Vitamin D 25 mcg 04/24/20 09:00 04/24/20 07:40 Cholecalciferol (Vitamin D3) 25 Mcg Tablet PO 25 mcg DAILY [facility] Administration Labs CBC & Chem 7: 04/24/20 09:57 04/24/20 02:00 Assessment and Plan (1) Non-ST elevation (NSTEMI) myocardial infarction: Status: Acute (2) Fracture of wrist: Status: Acute Assessment and Plan: This is a 69 yo cirrhotic F (secondary to heavy alcohol abuse) -- who presented to the hospital after a mechanical fall and is found to have L arm fx. Plan was for her to go home but routine blood work in the ED showed elevated HS- Trop-I (no chest pain nor EKG changes) and as such she was admitted for further w/u 1. Elevated trop-I likely type 2 NSTEMI trend trop, check one now hold of anticogulation at this time 2d echo cardiology input appreciated 2. L wrist fx per ED notes -- to f/u with orthpedics as outpatient early next week. If she remains in house until then, will ask ortho to see her then 3. Cirrhosis continue her diuretics, thiamin Full Code DVT pptx, heparin
[2020-04-24 17:19] LABS: Troponin-I High Sensitivity 1914.3 ng/L (<3.5-17.0)
[2020-04-25] VITALS (9 sets, daily range): BP systolic 106–141; BP diastolic 56–87; PULSE 80–124; RESP 18–20; TEMP 36.4–36.9; O2SAT 91–95
[2020-04-25] MEDS: 0.9 % Sodium Chloride Flush 3 ML SYRINGE IVFLUSH ×4 (00:21→23:41)
[2020-04-25] MEDS: Heparin Sodium,Porcine/1/2NS 25,000 UNIT/250 ML IV.SOLN 15.89 UNIT IVCONT (03:07)
[2020-04-25] MEDS: oxyCODONE HCl Immed Release 5 MG TABLET PO ×4 (05:21→20:57)
[2020-04-25 06:18] LABS: MANUAL DIFF FLAG NO
[2020-04-25 06:45] LABS: Basophils Percent Auto 0.3 % (0-2); Eosinophils Percent Auto 0.4 % (0-4); Imm Gran Abs Auto 0.04 X10*3/uL (0.00-0.03); Imm Gran Pct Auto 0.4 % (0.0-0.4); Lymphocytes Absolute Auto 0.8 X10*3/uL (1.2-4.9); Lymphocytes Percent Auto 7.9 % (20-40); Mean Corpuscular HGB Conc 32.4 g/dl (31.0-35.0); Mean Corpuscular Hemoglobin 32.8 pg (27.0-33.0); Mean Corpuscular Volume 101.1 fL (80-98); Mean Platelet Volume 10.4 fL (9.4-12.3); Monocytes Absolute Auto 0.6 X10*3/uL (0.1-1.2); Monocytes Percent Auto 6.7 % (2-11); Neutrophils Percent Auto 84.3 % (45-73); Platelet Count 108 X10*3/uL (160-400); Red Blood Count 3.66 X10*6/uL (4.20-5.50); Red Cell Distribution Width 14.5 % (11.0-16.0); White Blood Count 9.4 X10*3/uL (4.8-10.8)
[2020-04-25 06:59] LABS: PTT Heparin Drip 79.4 SEC (53-77.9)
[2020-04-25 07:03] LABS: INTERNATIONAL NORM RATIO 1.3 (0.9-1.1)
[2020-04-25 07:12] LABS: Anion Gap 13 (12-20); Blood Urea Nitrogen 19 mg/dL (9-16); Carbon Dioxide 33 mmol/L (22-29); Chloride 96 mmol/L (96-108); Creatinine Clr Calc Pharmacy 48.2; Estimated Glomerular Filt Rate 41; Glucose Random 111 mg/dL (60-115); Potassium 4.1 mmol/l (3.3-5.1); Sodium 138 mmol/L (135-145)
--- NOTE | 2020-04-25 07:43 | PC.NURSE ---
0200; HOSPITALIST ORDERED STAT LABS, CBC, INR, HEPARIN DRIP. LAB IN PATIENT'S ROOM TO DRAW BLOOD, PATIENT REFUSING FOR ANYTHING TO BE DONE AT THIS TIME. PATIENT ALERT AND ORIENTED, DENIES ANY PAIN OR DISCOMFORT OR SOB. PATIENT REPORTED DAY SHIFT MD SPOKE TO PATIENT ABOUT STARTING ANTICOAGULATION DRIP AND PATIENT REFUSED. AT THIS TIME PATIENT REPORTS SHE NEEDS TO THINK ABOUT IT AND WANTS TO SPEAK TO MD. NOTIFIED DR. BRIAN MD AT PATIENT'S BEDSIDE. PATIENT AGREED TO TREATMENT. PATIENT REFUSED ANY ADDITIONAL LAB WORK AT THIS TIME BUT AGREED TO HEPARIN DRIP STARTING. EDUCATED PATIENT ON FUTURE LAB DRAWS IN THE DAY FOR HEPARIN DRIP. PATIENT AGREEABLE, UPDATED.
[2020-04-25] MEDS: Spironolactone 25 MG TABLET PO (09:34)
[2020-04-25] MEDS: Thiamine HCL 100 MG TABLET PO (09:35)
[2020-04-25] MEDS: allopurinoL 100 MG TABLET PO ×2 (09:35→20:57)
[2020-04-25] MEDS: Cyanocobalamin (Vitamin B-12) 100 MCG TABLET PO (09:35)
[2020-04-25] MEDS: Gabapentin 300 MG CAPSULE PO ×3 (09:35→20:57)
[2020-04-25] MEDS: Cholecalciferol (Vitamin D3) 25 MCG TABLET PO (09:35)
[2020-04-25] MEDS: Furosemide 20 MG TABLET PO ×2 (09:36→20:57)
[2020-04-25 09:38] LABS: Troponin-I High Sensitivity 1354.1 ng/L (<3.5-17.0)
[2020-04-25 09:52] LABS: PTT Heparin Drip 142.6 SEC (53-77.9)
[2020-04-25 11:22] LABS: PTT Heparin Drip 51.1 SEC (53-77.9)
--- NOTE | 2020-04-25 12:49 | PM.PNCARD ---
Subjective Subjective Interval history: seen and examined denies chest pain now or at home before fall complaining of wrist pain but otherwise okay Review of Systems Review of Systems Cardiac- negative for angina, shortness of breath or any other cardiac symptoms. Remainder of the 10 system review is negative. Physical Exam Vital Signs: Vital Signs Temp Pulse Resp BP Pulse Ox 04/25/20 12:00 98.0 F 117 H 20 106/63 94 04/25/20 09:34 124 H 125/56 L 04/25/20 08:00 97.9 F 124 H 20 125/56 L 95 04/25/20 04:34 94 04/25/20 03:57 97.6 F 113 H 18 113/70 91 L 04/25/20 00:00 98.0 F 96 18 111/87 92 04/24/20 20:00 97.8 F 100 122/66 98 04/24/20 15:39 98.2 F 98 20 110/78 98 Body Mass Index 48.8 Comfortable, no distress No pallor, icterus or cyanosis HEENT -unremarkable JVD- normal Cardiac- normal heart sounds, no murmurs, gallops or rubs, normal PMI Respiratory-normal breath sounds bilaterally, no crackles, no wheeze Abdomen- soft, nontender Neuro- alert and oriented Lower extremities- warm well perfused Progress Note: A&P Assessment and plan (1) Non-ST elevation (NSTEMI) myocardial infarction: Status: Acute (2) Fall: Status: Acute Assessment and Plan: EKG with sinus tachycardia, possible right ventricular hypertrophy and right superior axis deviation. No clear ischemic findings noted. Troponin elevation is probably demand related type 2 NSTEMI. We will get an echocardiogram on Sunday. Currently on IV heparin and that can be stopped at night. She has a history of cirrhosis. Hence will avoid prolonged heparin use. Eventually, she will need a stress test. Time Spent With Patient Time: Total time spent is greater than 50% in coordination of care (as documented) at patient's floor/unit and/or counseling patient: Time with patient: 15 - 24 minutes
--- NOTE | 2020-04-25 13:18 | HO.PM.IMPN ---
Subjective Subjective Date of Service: 04/25/20 Interval History: seen and examined no chest pain only wrist pain Review of Systems General - no fevers or chills Cardiovascular - no chest pain Respiratory - no shortness of breath or cough Abdominal- no abdominal pain, nausea, vomiting, diarrhea Physical Exam Vital Signs: Vital Signs: Vital Signs Temp Pulse Resp BP Pulse Ox 04/25/20 12:00 98.0 F 117 H 20 106/63 94 04/25/20 09:34 124 H 125/56 L 04/25/20 08:00 97.9 F 124 H 20 125/56 L 95 04/25/20 04:34 94 04/25/20 03:57 97.6 F 113 H 18 113/70 91 L 04/25/20 00:00 98.0 F 96 18 111/87 92 04/24/20 20:00 97.8 F 100 122/66 98 04/24/20 15:39 98.2 F 98 20 110/78 98 Body Mass Index 48.8 General - no acute distress, appears comfortable Cardiovascular - regular rate and rhythm, S1-S2 Lungs - normal respiratory effort, clear to auscultation bilaterally, no wheezing Abdomen - soft, nontender, no rebound regarding Extremities - L arm in splint Neuro - awake and alert, no focal deficits Objective Data Current Medications Generic Name Dose Route Start Last Admin Trade Name Rahulq PRN Reason Stop Dose Admin Allopurinol 100 mg 04/24/20 09:00 04/25/20 09:35 Allopurinol 100 Mg Tablet PO 100 mg BID [facility] Administration Cyanocobalamin 100 mcg 04/24/20 09:00 04/25/20 09:35 Cyanocobalamin (Vitamin B-12) 100 Mcg Tablet PO 100 mcg DAILY [facility] Administration Furosemide 20 mg 04/24/20 09:00 04/25/20 09:36 Furosemide 20 Mg Tablet PO 20 mg BID [facility] Administration Protocol Gabapentin 300 mg 04/24/20 15:00 04/25/20 09:35 Gabapentin 300 Mg Capsule PO 300 mg TID [facility] Administration Heparin Sodium (Porcine) 5,000 unit 04/25/20 01:39 Heparin Sodium,Porcine 5,000 Unit/Ml Vial IVPUSH BOLUS PRN Based on PTT results Hydroxyzine HCl 25 mg 04/24/20 16:26 Hydroxyzine Hcl 25 Mg Tablet PO QID PRN Anxiety Heparin Sodium/Sodium Chloride 25,000 unit in 250 mls @ 0 mls/hr 04/25/20 01:45 04/25/20 11:54 IVCONT 04/26/20 01:44 10 units/kg/hr .Q0M [facility] 11.35 mls/hr Titration Protocol Per Protocol Omeprazole 20 mg 04/24/20 09:00 04/25/20 10:01 Omeprazole 20 Mg/10 Ml Susp.Recon PO Not Given BID [facility] Oxycodone HCl 5 mg 04/25/20 09:52 04/25/20 10:01 Oxycodone Hcl Immed Release 5 Mg Tablet PO 5 mg Q4H PRN Administration Pain, Moderate (Pain Scale 4-6 Sodium Chloride 3 ml 04/24/20 08:00 04/25/20 09:36 0.9 % Sodium Chloride Flush 3 Ml Syringe IVFLUSH 3 ml QSHIFT [facility] Administration Spironolactone 25 mg 04/24/20 09:00 04/25/20 09:34 Spironolactone 25 Mg Tablet PO 25 mg DAILY [facility] Administration Protocol Thiamine HCl 100 mg 04/25/20 09:00 04/25/20 09:35 Thiamine Hcl 100 Mg Tablet PO 100 mg DAILY [facility] Administration Vitamin D 25 mcg 04/24/20 09:00 04/25/20 09:35 Cholecalciferol (Vitamin D3) 25 Mcg Tablet PO 25 mcg DAILY [facility] Administration Labs CBC & Chem 7: 04/25/20 06:07 04/25/20 06:07 Assessment and Plan (1) Non-ST elevation (NSTEMI) myocardial infarction: Status: Acute (2) Fracture of wrist: Status: Acute Assessment and Plan: This is a 69 yo cirrhotic F (secondary to heavy alcohol abuse) -- who presented to the hospital after a mechanical fall and is found to have L arm fx. Plan was for her to go home but routine blood work in the ED showed elevated HS- Trop-I (no chest pain nor EKG changes) and as such she was admitted for further w/u 1. Elevated trop-I heparin gtt x 24 hours, appreciate cardiology in put echo tomorrow HS trop-I down trending eventual stress test 2. L wrist fx per ED notes -- to f/u with orthpedics as outpatient early next week. will have ortho see the patient while shes here 3. Cirrhosis continue her diuretics, thiamin 4. Fall pt eval tomorrow Full Code DVT pptx, heparin
--- NOTE | 2020-04-25 19:19 | P.CONOP_ITS ---
History of Present Illness HPI Chief complaint: mechanical fall, left arm pain Narrative: Ms. Mon is a 69 yo female who presented to the ED after sustaining a fall and injuring her wrist. She was admitted to the medical service because while in the ED she had elevated Troponins and chest pain. On exam and xray she was found to have a distal radius fracture. This was splinted and orthopedics was consulted for further evaluation. Review of Systems Review of Systems: Yes all other systems are reviewed and are negative PMFSH Past Medical History Medical History Chronic kidney disease Cirrhosis Cirrhosis of liver Functional capacity: independent ambulation Family History Family history: reviewed and not pertinent Social History Social History Household Members: None Housing: Condominium Do you presently have visiting nurse or other home services: Yes Alcohol intake: former Smoking Status: Never smoker Smoked in Last 30 Days: No Patient Interested in Nicotine Replacement: No Patient Given Instructions on How to Stop Smoking: No Use of substances other than those prescribed or required for medical reasons: Yes Currently Displaying Signs/Symptoms of Drug Intoxication Withdrawal: No Any prior treatment program specific to substance use: No Have you been hit, kicked, punched, or otherwise hurt by someone within the past year? If so, by whom?: No Do you feel safe in your current relationship?: Yes Is there a partner from a previous relationship who is making you feel unsafe now?: No Are you made to feel afraid or neglected: No Advance Directives: No Advance Directives Information Provided: Yes Do you have thoughts of harming others: None Do you have a plan to hurt others: No Plan Recently lost weight without trying: No service: No Current occupational status: disabled Meds Allergies Allergy/AdvReac Type Severity Reaction Status Date / Time No Known Allergies Allergy Verified 04/25/20 11:26 [No Known Allergies*] Home Medications Medication Instructions Recorded Confirmed Type tramadol 50 - 100 mg PO Q6-8H PRN 04/23/20 04/24/20 History allopurinol 1 tab PO BID 04/24/20 04/24/20 History cholecalciferol (vitamin D3) 25 mcg PO DAILY 04/24/20 04/24/20 History cyanocobalamin (vitamin B-12) 1 tab PO DAILY 04/24/20 04/24/20 History [Vitamin B-12] furosemide 1 tab PO BID 04/24/20 04/24/20 History gabapentin 1 cap PO TID 04/24/20 04/24/20 History hydroxyzine HCl 25 mg PO QID PRN 04/24/20 04/24/20 History omeprazole 1 cap PO BID 04/24/20 04/24/20 History spironolactone 1 tab PO DAILY 04/24/20 04/24/20 History thiamine mononitrate (vit B1) 1 tab PO DAILY 04/24/20 04/24/20 History [Vitamin B-1 (mononitrate)] Physical Exam Vital Signs: Vital Signs: Vital Signs Temp Pulse Resp BP Pulse Ox 04/25/20 19:12 98.0 F 80 19 114/72 92 04/25/20 15:36 98.1 F 120 H 18 115/59 L 93 04/25/20 12:00 98.0 F 117 H 20 106/63 94 04/25/20 09:34 124 H 125/56 L 04/25/20 08:00 97.9 F 124 H 20 125/56 L 95 04/25/20 04:34 94 04/25/20 03:57 97.6 F 113 H 18 113/70 91 L 04/25/20 00:00 98.0 F 96 18 111/87 92 04/24/20 20:00 97.8 F 100 122/66 98 Body Mass Index 48.8 Const: General: cooperative and no acute distress Orientation/consciousness: patient oriented x3 Resp: Effort & Inspection: normal respiratory effort and able to speak in comp lete sentences Cardio: Peripheral pulses: Peripheral pulses 2+ throughout Neuro: General: patient oriented x3 Extrem: Other: Left wrist placed in a splint. Splint removed, skin is intact, there is some ecchymosis to the volar aspect of the forarm. Tenderness along the distal radius. Pulses present Xrays of the wrist show a distal radius fracture with dorsal angulation. Results Labs Result Diagrams: 04/25/20 06:07 04/25/20 06:07 Labs: Abnormal lab results 04/25/20 04/25/20 04/25/20 Range/Units 06:02 06:07 06:07 RBC 3.66 L (4.20-5.50) X10*6/uL MCV 101.1 H (80-98) fL Plt Count 108 L (160-400) X10*3/uL Neut % (Auto) 84.3 H (45-73) % Lymph % (Auto) 7.9 L (20-40) % Lymph # (Auto) 0.8 L (1.2-4.9) X10*3/uL Abs Immat Gran (auto) 0.04 H (0.00-0.03) X10*3/uL PT (10.8-13.0) SEC INR (0.9-1.1) PTT (Heparin Protocol) (53-77.9) SEC Carbon Dioxide 33 H (22-29) mmol/L BUN 19 H (9-16) mg/dL Calcium 7.0 L (8.4-10.2) mg/dL Troponin I High Sens 1354.1 H (<3.5-17.0) ng/L 04/25/20 04/25/20 04/25/20 Range/Units 06:07 08:52 10:51 RBC (4.20-5.50) X10*6/uL MCV (80-98) fL Plt Count (160-400) X10*3/uL Neut % (Auto) (45-73) % Lymph % (Auto) (20-40) % Lymph # (Auto) (1.2-4.9) X10*3/uL Abs Immat Gran (auto) (0.00-0.03) X10*3/uL PT 15.0 H (10.8-13.0) SEC INR 1.3 H (0.9-1.1) PTT (Heparin Protocol) 79.4 H 142.6 H* D 51.1 L D (53-77.9) SEC Carbon Dioxide (22-29) mmol/L BUN (9-16) mg/dL Calcium (8.4-10.2) mg/dL Troponin I High Sens (<3.5-17.0) ng/L H & H 04/24/20 04/24/20 04/25/20 Range/Units 02:00 09:57 06:07 Hgb 12.4 11.6 L 12.0 (12.0-16.0) g/dl Hct 37.7 35.6 L 37.0 (37-47) % 04/25/20 Range/Units 06:07 Hgb Cancelled (12.0-16.0) g/dl Hct Cancelled (37-47) % Coagulation 04/24/20 04/25/20 Range/Units 12:54 06:07 INR 1.2 H 1.3 H (0.9-1.1) All other labs normal. Assessment and Plan (1) Distal radius fracture, left: Qualifiers: Encounter type: initial encounter Fracture type: closed Fracture morphology: Colles' Qualified Code(s): S52.532A - Colles' fracture of left radius, initial encounter for closed fracture Status: Acute I discussed with Ms. Mon the extent of her injury and options which in clude closed reduction vs ORIF. Because of her medical condition it is not likely she will be able to undergo general anesthesia in the near future and a close reduction would be more realistic. I did speak with Dr Patricio and he mentioned she is going for an ECHO tomorrow and will update us on his re commendations. I explained to the patient the r/b/a to surgery or closed reduction, which include but are not limited to stiffness, pain, non union, malunion, and OA. She does understand all this and will proceed with closed reduction left wrist vs ORIF. We also discussed that if her cardiac function is not ideal for any type of procedure, this is not an urgent matter and we can put off fixing the wrist for another 1-2 wees if need be. (2) Encounter for cast change: Status: Acute Splint was removed and a new volar wrist splint was applied at bedside today.
[2020-04-26] VITALS (7 sets, daily range): BP systolic 100–129; BP diastolic 52–59; PULSE 99–118; RESP 18; TEMP 36.8–38.2; O2SAT 90–97; BMI 48.8
--- NOTE | 2020-04-26 | XR_ITS ---
EXAMINATION: XR CHEST CLINICAL INFORMATION: Fever COMPARISON: Previous chest x-ray 04/24/2020 TECHNIQUE: Frontal view of the chest was obtained. FINDINGS: The cardiac silhouette is enlarged but stable. Hilar and mediastinal contours are unremarkable. The lungs are clear. There is no pleural effusion. No acute bone abnormality is seen. IMPRESSION: Stable enlargement of the cardiac silhouette. No evidence of pneumonia.
[2020-04-26] MEDS: hydrOXYzine HCL 25 MG TABLET PO ×4 (00:20→22:49)
[2020-04-26] MEDS: oxyCODONE HCl Immed Release 5 MG TABLET PO ×5 (01:00→23:18)
[2020-04-26 07:04] LABS: Hematocrit 37.1 % (37-47); Hemoglobin 12.2 g/dl (12.0-16.0); Mean Corpuscular HGB Conc 32.9 g/dl (31.0-35.0); PLT CLUMP 1; Red Cell Distribution Width 14.6 % (11.0-16.0)
[2020-04-26 07:06] LABS: Mean Corpuscular Hemoglobin 32.8 pg (27.0-33.0); Mean Corpuscular Volume 99.7 fL (80-98); Mean Platelet Volume 10.6 fL (9.4-12.3); Platelet Count 111 X10*3/uL (160-400); Red Blood Count 3.72 X10*6/uL (4.20-5.50); White Blood Count 6.9 X10*3/uL (4.8-10.8)
[2020-04-26 07:15] LABS: INTERNATIONAL NORM RATIO 1.2 (0.9-1.1); Prothrombin Time 14.6 SEC (10.8-13.0)
[2020-04-26] MEDS: 0.9 % Sodium Chloride Flush 3 ML SYRINGE IVFLUSH ×2 (07:33→16:44)
[2020-04-26] MEDS: Furosemide 20 MG TABLET PO (08:51)
[2020-04-26] MEDS: Cyanocobalamin (Vitamin B-12) 100 MCG TABLET PO (08:51)
[2020-04-26] MEDS: Spironolactone 25 MG TABLET PO (08:51)
[2020-04-26] MEDS: Gabapentin 300 MG CAPSULE PO ×3 (08:51→22:04)
[2020-04-26] MEDS: Thiamine HCL 100 MG TABLET PO (08:51)
[2020-04-26] MEDS: allopurinoL 100 MG TABLET PO ×2 (08:51→22:04)
[2020-04-26] MEDS: Cholecalciferol (Vitamin D3) 25 MCG TABLET PO (08:51)
--- NOTE | 2020-04-26 10:00 | CA_ITS ---
Transthoracic Echocardiogram Patient (Last, First, Middle): Jahaira Mon, Gender: Female Date of : 1950 Age: 69 Procedure Date: 04/26/2020 Procedure Type: Transthoracic Echocardiogram [place] [facility] [place] Height: 162.56 cm Weight: 99.79 kg BSA: 2.04 m2 Heart Rate: bpm BP: 122 / 60 mmHg [facility] Director: Referring MD: Tori Askew MD Symptoms: NSTEMI Study Quality: Technically Difficult ECG Rhythm: Sinus tachycardia Conclusions: - The left ventricular systolic function is mild to moderately decreased. The visually estimated ejection fraction is between 40-45%. - Left ventricle globally hypokinetic, but base is more contractile than the mid ventricle and apex. Suggestive of stress-induced cardiomyopathy. - Visually right ventricular appears hypokinetic, more so towards the apex. - No obvious valvular pathology seen on this study. Findings Procedure Information Contrast agent, definity, is being given per protocol without apparent complications. Left Ventricle The left ventricle was not well visualized. Normal left ventricular cavity size. There is mildly increased left ventricular wall thickness. The left ventricular systolic function is mild to moderately decreased. The visually estimated ejection fraction is between 40-45%. Diastolic function is indeterminate on the basis of available data. Left ventricle globally hypokinetic, but base is more contractile than the mid ventricle and apex. Suggestive of stress-induced cardiomyopathy. Right Ventricle Normal right ventricular cavity size. Visually right ventricular appears hypokinetic, more so towards the apex. Atria The left atrium is mildly dilated. The right atrium is normal in size. Aortic Valve The aortic valve was not well visualized. There is no aortic valve stenosis. There is no aortic valve regurgitation. Mitral Valve The mitral valve was not well visualized. There is trace mitral valve regurgitation. There is no mitral valve stenosis. Pulmonic Valve The pulmonic valve was not well visualized. Tricuspid Valve There is mild tricuspid valve regurgitation. Mild pulmonary hypertension is present. Great Vessels The asc aorta is normal in size. Venous The inferior vena cava is normal in size and collapses less than 50% with inspiration. Prior Study Comparison No prior study available for comparison. Recommendations, Care & Conclusions No obvious valvular pathology seen on this study. Measurements 2D Linear Measurements IVSd: 1.32 0.6-0.9/0.6-1.0 cm LVIDd: 4.26 3.9-5.3/4.2-5.9 cm LVIDd Index: 2.09 2.4-3.2/2.2-3.1 cm/m2 LVIDs: 2.85 2.0-3.6 cm LVPWd: 1.29 0.7-1.1 cm Ao Root: 3.40 2.1-3.5 cm LA Diam: 3.00 2.7-3.8/3.0-4.0 cm LAIDs Index: 1.47 1.5-2.3 cm/m2 LV Mass: 256.81 67-162/88-224 g LV Mass Index: 125.89 43-95/49-115 g/m2 LVOT Diam: 2.20 3.0+(-)1.3 cm 2D Systolic Function EF 4C: 50.20 >55% EF 2C: 47.60 >55% EF BiP: 45.90 >55% Mitral Valve MV Pk E: 0.65 MV PK A: 1.45 MV Decel Time: 74.00 E/A: 0.40 E'Lateral: 4.35 E'Medial: 4.54 E/E' Med: 14.20 E/E' Lat: 14.80 PHT: 22.00 MVA PHT: 10.00 Decel Coos: 8.72 Aortic Valve AoV Pk Umesh: 1.30 AoV Mn Umesh: 0.88 AoV VTI: 0.23 AoV Pk Grad: 7.00 Aov Mn Grad: 4.00 LEE Cont.VTI: 3.21 LVOT LVOT Pk Umesh: 1.06 LVOT Mn Umesh: 0.71 LVOT VTI: 0.19 LVOT Pk Grad: 4.00 LVOT Mn Grad: 2.00 LVOT Diam: 2.20 LVOT Area: 3.80 Diastolic Function MV Pk E: 0.65 MV Pk A: 1.45 E/A: 0.40 E'Medial: 4.54 E/E' Med: 14.20 E' Laterial: 4.35 E/E' Lat: 14.80 Tricuspid Valve TR Pk Umesh: 3.32 TR Pk Grad: 44.00 Great Vessels Aorta Ao Root-2D: 3.40 2.0-3.7 cm Pulmonary Valve PV Pk Umesh: 1.02 Peak PV Grad: 4.00 Updated in Other Vendor System with Status of Final Preston Urbano MD electronically signed on 04/26/2020 1:06:05 PM with status of Final
--- NOTE | 2020-04-26 12:36 | PM.PNCARD ---
Subjective Subjective Interval history: seen and examined no chest pain only wrist pain Review of Systems Review of Systems Cardiac-negative for angina, shortness of breath, palpitations, dizzy spells or syncopal episodes Yes all other systems are reviewed and are negative Physical Exam Vital Signs: Vital Signs Temp Pulse Resp BP Pulse Ox 04/26/20 11:51 99.9 F 117 H 18 111/57 L 95 04/26/20 07:47 100.8 F H 113 H 18 100/59 L 97 04/26/20 03:47 98.4 F 118 H 18 129/55 L 93 04/25/20 23:38 98.4 F 110 H 18 141/65 H 93 04/25/20 19:12 98.0 F 80 19 114/72 92 04/25/20 15:36 98.1 F 120 H 18 115/59 L 93 Body Mass Index 48.8 Comfortable, no distress No pallor, icterus or cyanosis HEENT -unremarkable JVD- normal Cardiac- normal heart sounds, no murmurs, gallops or rubs, normal PMI Respiratory-normal breath sounds bilaterally, no crackles, no wheeze Abdomen- soft, nontender Neuro- alert and oriented Lower extremities- warm well perfused Progress Note: A&P Assessment and plan (1) Non-ST elevation (NSTEMI) myocardial infarction: Status: Acute (2) Fall: Status: Acute (3) Stress-induced cardiomyopathy: Status: Acute Assessment and Plan: EKG with sinus tachycardia, possible right ventricular hypertrophy and right superior axis deviation. No clear ischemic findings noted. Echocardiogram is suggestive of stress-induced cardiomyopathy. This could lead to sinus tachycardia as well as troponin elevation. She could also have underlying coronary disease. Start low-dose beta-blockers. If blood pressure allows, low-dose ASTRID-i. Not suitable for orthopedic surgery at this time. Manage conservatively Fall Risk Details Current Medications: Current Medications Generic Name Dose Route Start Last Admin Trade Name Freq PRN Reason Stop Dose Admin Allopurinol 100 mg 04/24/20 09:00 04/26/20 08:51 Allopurinol 100 Mg Tablet PO 100 mg BID [facility] Administration Cyanocobalamin 100 mcg 04/24/20 09:00 04/26/20 08:51 Cyanocobalamin (Vitamin B-12) 100 Mcg Tablet PO 100 mcg DAILY [facility] Administration Furosemide 20 mg 04/24/20 09:00 04/26/20 08:51 Furosemide 20 Mg Tablet PO 20 mg BID [facility] Administration Protocol Gabapentin 300 mg 04/24/20 15:00 04/26/20 08:51 Gabapentin 300 Mg Capsule PO 300 mg TID [facility] Administration Heparin Sodium (Porcine) 5,000 unit 04/25/20 01:39 Heparin Sodium,Porcine 5,000 Unit/Ml Vial IVPUSH BOLUS PRN Based on PTT results Hydroxyzine HCl 25 mg 04/24/20 16:26 04/26/20 08:50 Hydroxyzine Hcl 25 Mg Tablet PO 25 mg QID PRN Administration Anxiety Omeprazole 20 mg 04/24/20 09:00 04/26/20 08:55 Omeprazole 20 Mg/10 Ml Susp.Recon PO Not Given BID [facility] Oxycodone HCl 5 mg 04/25/20 09:52 04/26/20 11:38 Oxycodone Hcl Immed Release 5 Mg Tablet PO 5 mg Q4H PRN Administration Pain, Moderate (Pain Scale 4-6 Sodium Chloride 3 ml 04/24/20 08:00 04/26/20 07:33 0.9 % Sodium Chloride Flush 3 Ml Syringe IVFLUSH 3 ml QSHIFT [facility] Administration Spironolactone 25 mg 04/24/20 09:00 04/26/20 08:51 Spironolactone 25 Mg Tablet PO 25 mg DAILY [facility] Administration Protocol Thiamine HCl 100 mg 04/25/20 09:00 04/26/20 08:51 Thiamine Hcl 100 Mg Tablet PO 100 mg DAILY [facility] Administration Vitamin D 25 mcg 04/24/20 09:00 04/26/20 08:51 Cholecalciferol (Vitamin D3) 25 Mcg Tablet PO 25 mcg DAILY [facility] Administration Time Spent With Patient Time: Total time spent is greater than 50% in coordination of care (as documented) at patient's floor/unit and/or counseling patient: Time with patient: 15 - 24 minutes
[2020-04-26 14:56] LABS: Glucose Urine UA NEG (NEG); Leukocyte Esterase Urine TRACE (NEG); Nitrite Urine NEG (NEG); PH 7.5 (5.0-8.0); Urine Blood NEG (NEG); Urine Ketones NEG (NEG); Urine Protein NEG (NEG-TRACE)
[2020-04-26 15:18] LABS: Appearance Urine HAZY; Color Urine YELLOW
[2020-04-26 15:22] LABS: RBC Urine 0-2 /HPF (0); Squamous Epithelial Cell Urine 4+ /LPF; WBC Urine 0 /HPF (0-4)
[2020-04-26] MEDS: Metoprolol Succinate ER 12.5 MG HALFTAB.ER.24H PO (16:12)
[2020-04-26] MEDS: cefTRIAXone sodium 1 GM in 0.9 % Sodium Chloride 50 ML IV (16:13)
--- NOTE | 2020-04-26 16:14 | P.PNIM_ITS ---
Subjective Subjective Date of Service: 04/26/20 Interval History: seen and examined no chest pain wrist pain and anxiety d/w her re: recent alcohol use, denies seen again after fever x1 -- denies any cough / sob; denies any urinary complaints at this time; no fevers or chills Review of Systems General - no fevers or chills Cardiovascular - no chest pain Respiratory - no shortness of breath or cough Abdominal- no abdominal pain, nausea, vomiting, diarrhea - no dysuria Physical Exam Vital Signs: Vital Signs: Vital Signs Temp Pulse Resp BP Pulse Ox 04/26/20 16:00 98.3 F 105 H 18 111/58 L 97 04/26/20 11:51 99.9 F 117 H 18 111/57 L 95 04/26/20 07:47 100.8 F H 113 H 18 100/59 L 97 04/26/20 03:47 98.4 F 118 H 18 129/55 L 93 04/25/20 23:38 98.4 F 110 H 18 141/65 H 93 04/25/20 19:12 98.0 F 80 19 114/72 92 Body Mass Index 48.8 General - no acute distress, appears comfortable Cardiovascular - regular rate and rhythm, S1-S2 Lungs - normal respiratory effort, clear to auscultation bilaterally, no wheezing Abdomen - soft, nontender, no rebound regarding Extremities - L arm in splint Neuro - awake and alert, no focal deficits Objective Data Current Medications Generic Name Dose Route Start Last Admin Trade Name Freq PRN Reason Stop Dose Admin Allopurinol 100 mg 04/24/20 09:00 04/26/20 08:51 Allopurinol 100 Mg Tablet PO 100 mg BID [facility] Administration Cyanocobalamin 100 mcg 04/24/20 09:00 04/26/20 08:51 Cyanocobalamin (Vitamin B-12) 100 Mcg Tablet PO 100 mcg DAILY [facility] Administration Gabapentin 300 mg 04/24/20 15:00 04/26/20 08:51 Gabapentin 300 Mg Capsule PO 300 mg TID [facility] Administration Heparin Sodium (Porcine) 5,000 unit 04/25/20 01:39 Heparin Sodium,Porcine 5,000 Unit/Ml Vial IVPUSH BOLUS PRN Based on PTT results Hydroxyzine HCl 25 mg 04/24/20 16:26 04/26/20 08:50 Hydroxyzine Hcl 25 Mg Tablet PO 25 mg QID PRN Administration Anxiety Ceftriaxone Sodium 1 gm/ 50 mls @ 100 mls/hr 04/26/20 15:00 Sodium Chloride IV Q24H [facility] Metoprolol Succinate 12.5 mg 04/26/20 14:15 Metoprolol Succinate Er 12.5 Mg Halftab.Er.24h PO DAILY [facility] Protocol Omeprazole 20 mg 04/24/20 09:00 04/26/20 08:55 Omeprazole 20 Mg/10 Ml Susp.Recon PO Not Given BID [facility] Oxycodone HCl 5 mg 04/25/20 09:52 04/26/20 11:38 Oxycodone Hcl Immed Release 5 Mg Tablet PO 5 mg Q4H PRN Administration Pain, Moderate (Pain Scale 4-6 Sodium Chloride 3 ml 04/24/20 08:00 04/26/20 07:33 0.9 % Sodium Chloride Flush 3 Ml Syringe IVFLUSH 3 ml QSHIFT [facility] Administration Spironolactone 25 mg 04/24/20 09:00 04/26/20 08:51 Spironolactone 25 Mg Tablet PO 25 mg DAILY [facility] Administration Protocol Thiamine HCl 100 mg 04/25/20 09:00 04/26/20 08:51 Thiamine Hcl 100 Mg Tablet PO 100 mg DAILY [facility] Administration Vitamin D 25 mcg 04/24/20 09:00 04/26/20 08:51 Cholecalciferol (Vitamin D3) 25 Mcg Tablet PO 25 mcg DAILY [facility] Administration Labs CBC & Chem 7: 04/26/20 06:05 04/25/20 06:07 Assessment and Plan (1) Non-ST elevation (NSTEMI) myocardial infarction: Status: Acute (2) Fracture of wrist: Status: Acute Assessment and Plan: This is a 69 yo cirrhotic F (secondary to heavy alcohol abuse) -- who presented to the hospital after a mechanical fall and is found to have L arm fx. Plan was for her to go home but routine blood work in the ED showed elevated HS- Trop-I (no chest pain nor EKG changes) and as such she was admitted for further w/u 1. Strees induced cardiomyopathy s/p 24 hours heparin gtt, trop-I down trending low dose betablocker initiated, ASTRID-I if bp allows tomorrow Cardiology input appreciated 2. L wrist fx ortho informed re: conversative mgmt as recommended by cardiology 3. Fever x 1 ? related to fracture UA clear, repeat CXR without sinigicant findings 1 dose empiric rocephin given blood cultures sent, lacate normal 3. Cirrhosis continue her diuretics, thiamin 4. Fall pt eval Full Code DVT pptx -- was on heparin gtt, start subcut. heparin
[2020-04-26] MEDS: Heparin Sodium,Porcine 5,000 UNIT/ML VIAL 5000 UNIT SUBCUT (19:09)
[2020-04-27] VITALS (9 sets, daily range): BP systolic 101–116; BP diastolic 58–68; PULSE 55–108; RESP 16–20; TEMP 36.1–36.9; O2SAT 90–98
[2020-04-27] MEDS: 0.9 % Sodium Chloride Flush 3 ML SYRINGE IVFLUSH ×3 (00:33→15:18)
[2020-04-27] MEDS: Heparin Sodium,Porcine 5,000 UNIT/ML VIAL 5000 UNIT SUBCUT ×3 (01:25→17:15)
[2020-04-27] MEDS: oxyCODONE HCl Immed Release 5 MG TABLET PO ×5 (03:47→21:24)
[2020-04-27] MEDS: hydrOXYzine HCL 25 MG TABLET PO ×3 (05:10→19:29)
[2020-04-27 06:25] LABS: MANUAL DIFF FLAG NO
[2020-04-27 06:44] LABS: Basophils Percent Auto 0.6 % (0-2); Eosinophils Absolute Auto 0.1 X10*3/uL (0.0-0.4); Eosinophils Percent Auto 1.6 % (0-4); Hematocrit 34.8 % (37-47); Hemoglobin 11.3 g/dl (12.0-16.0); Imm Gran Abs Auto 0.02 X10*3/uL (0.00-0.03); Imm Gran Pct Auto 0.3 % (0.0-0.4); Lymphocytes Absolute Auto 1.1 X10*3/uL (1.2-4.9); Lymphocytes Percent Auto 15.1 % (20-40); Mean Corpuscular HGB Conc 32.5 g/dl (31.0-35.0); Mean Corpuscular Hemoglobin 32.6 pg (27.0-33.0); Mean Corpuscular Volume 100.3 fL (80-98); Mean Platelet Volume 11.3 fL (9.4-12.3); Monocytes Absolute Auto 0.7 X10*3/uL (0.1-1.2); Monocytes Percent Auto 9.3 % (2-11); Neutrophils Absolute Auto 5.2 X10*3/uL (2.0-8.3); Neutrophils Percent Auto 73.1 % (45-73); Platelet Count 121 X10*3/uL (160-400); Red Blood Count 3.47 X10*6/uL (4.20-5.50); Red Cell Distribution Width 14.8 % (11.0-16.0); White Blood Count 7.1 X10*3/uL (4.8-10.8)
[2020-04-27 07:03] LABS: Anion Gap 13 (12-20); Blood Urea Nitrogen 19 mg/dL (9-16); Calcium 6.7 mg/dL (8.4-10.2); Carbon Dioxide 32 mmol/L (22-29); Chloride 95 mmol/L (96-108); Estimated Glomerular Filt Rate 42; Glucose Random 116 mg/dL (60-115); Potassium 4.1 mmol/l (3.3-5.1); Sodium 136 mmol/L (135-145)
[2020-04-27] MEDS: Cholecalciferol (Vitamin D3) 25 MCG TABLET PO (08:12)
[2020-04-27] MEDS: Metoprolol Succinate ER 12.5 MG HALFTAB.ER.24H PO (08:12)
[2020-04-27] MEDS: Spironolactone 25 MG TABLET PO (08:13)
[2020-04-27] MEDS: Cyanocobalamin (Vitamin B-12) 100 MCG TABLET PO (08:13)
[2020-04-27] MEDS: Gabapentin 300 MG CAPSULE PO ×3 (08:14→21:24)
[2020-04-27] MEDS: Thiamine HCL 100 MG TABLET PO (08:14)
[2020-04-27] MEDS: allopurinoL 100 MG TABLET PO ×2 (08:14→21:25)
--- NOTE | 2020-04-27 12:40 | P.PNCA_ITS ---
Subjective Subjective Interval history: Seen and examined. She does not have any specific cardiac symptoms. No anginal-type symptoms. Chronic shortness of breath is still present. Generally feels weak. Review of Systems Review of Systems Cardiac- negative for angina. Chronic multifactorial shortness of breath. No palpitations, dizzy spells or syncopal episodes. Remainder of the 10 system review is negative. Physical Exam Vital Signs: Vital Signs Temp Pulse Resp BP Pulse Ox 04/27/20 08:13 108 H 114/58 L 04/27/20 08:12 108 H 114/58 L 04/27/20 07:49 97.6 F 55 20 114/58 L 92 04/27/20 03:17 98.5 F 101 H 16 112/58 L 90 L 04/26/20 23:08 98.6 F 100 18 107/57 L 90 L 04/26/20 19:40 99.1 F 99 18 109/52 L 91 L 04/26/20 16:12 118 H 111/58 L 04/26/20 16:00 98.3 F 105 H 18 111/58 L 97 Body Mass Index 48.8 Comfortable, no distress No pallor, icterus or cyanosis HEENT -unremarkable JVD- normal Cardiac- normal heart sounds, no murmurs, gallops or rubs, normal PMI Respiratory-normal breath sounds bilaterally, no crackles, no wheeze Abdomen- soft, nontender Neuro- alert and oriented Lower extremities- warm well perfused Progress Note: A&P Assessment and plan (1) Non-ST elevation (NSTEMI) myocardial infarction: Status: Acute (2) Fall: Status: Acute (3) Stress-induced cardiomyopathy: Status: Acute Assessment and Plan: EKG with sinus tachycardia, possible right ventricular hypertrophy and right superior axis deviation. No clear ischemic findings noted. Echocardiogram is suggestive of stress-induced cardiomyopathy. This could lead to sinus tachycardia as well as troponin elevation. She could also have underlying coronary disease. Continue low-dose beta-blockers. If blood pressure allows, low-dose ASTRID-i. In this setting, ideally should wait for a few weeks before any orthopedic surgery. However, if that is not desirable, she will be considered to be at high cardiac risk for immediate surgery. Fall Risk Details Current Medications: Current Medications Generic Name Dose Route Start Last Admin Trade Name Freq PRN Reason Stop Dose Admin Allopurinol 100 mg 04/24/20 09:00 04/27/20 08:14 Allopurinol 100 Mg Tablet PO 100 mg BID [facility] Administration Cyanocobalamin 100 mcg 04/24/20 09:00 04/27/20 08:13 Cyanocobalamin (Vitamin B-12) 100 Mcg Tablet PO 100 mcg DAILY [facility] Administration Gabapentin 300 mg 04/24/20 15:00 04/27/20 08:14 Gabapentin 300 Mg Capsule PO 300 mg TID [facility] Administration Heparin Sodium (Porcine) 5,000 unit 04/25/20 01:39 Heparin Sodium,Porcine 5,000 Unit/Ml Vial IVPUSH BOLUS PRN Based on PTT results Heparin Sodium (Porcine) 5,000 unit 04/26/20 18:00 04/27/20 11:07 Heparin Sodium,Porcine 5,000 Unit/Ml Vial SUBCUT 5,000 unit Q8H [facility] Administration Hydroxyzine HCl 25 mg 04/24/20 16:26 04/27/20 11:10 Hydroxyzine Hcl 25 Mg Tablet PO 25 mg QID PRN Administration Anxiety Metoprolol Succinate 12.5 mg 04/26/20 14:15 04/27/20 08:12 Metoprolol Succinate Er 12.5 Mg Halftab.Er.24h PO 12.5 mg DAILY [facility] Administration Protocol Omeprazole 20 mg 04/24/20 09:00 04/27/20 08:22 Omeprazole 20 Mg/10 Ml Susp.Recon PO Not Given BID [facility] Oxycodone HCl 5 mg 04/25/20 09:52 04/27/20 08:13 Oxycodone Hcl Immed Release 5 Mg Tablet PO 5 mg Q4H PRN Administration Pain, Moderate (Pain Scale 4-6 Sodium Chloride 3 ml 04/24/20 08:00 04/27/20 08:14 0.9 % Sodium Chloride Flush 3 Ml Syringe IVFLUSH 3 ml QSHIFT [facility] Administration Spironolactone 25 mg 04/24/20 09:00 04/27/20 08:13 Spironolactone 25 Mg Tablet PO 25 mg DAILY [facility] Administration Protocol Thiamine HCl 100 mg 04/25/20 09:00 04/27/20 08:14 Thiamine Hcl 100 Mg Tablet PO 100 mg DAILY [facility] Administration Vitamin D 25 mcg 04/24/20 09:00 04/27/20 08:12 Cholecalciferol (Vitamin D3) 25 Mcg Tablet PO 25 mcg DAILY [facility] Administration Time Spent With Patient Time: Total time spent is greater than 50% in coordination of care (as documented) at patient's floor/unit and/or counseling patient: Time with patient: 15 - 24 minutes
[2020-04-27] MEDS: Sennosides/Docusate Sodium TABLET 2 TAB PO (12:57)
[2020-04-27] MEDS: Nystatin Powder 15 GM BOTTLE 1 APPL TOPICAL ×2 (15:17→21:26)
--- NOTE | 2020-04-27 17:14 | PM.IMPN ---
Subjective Subjective Date of Service: 04/27/20 Interval History: C/o ongoing wrist pain No further fever Concerned about disturbing hallucinations during attempted reduction in ED when she got ketamine Review of Systems General - no fevers or chills Cardiovascular - no chest pain Respiratory - chronic dyspnea. no cough Abdominal- no abdominal pain, nausea, vomiting, diarrhea Physical Exam Vital Signs: Vital Signs: Vital Signs Temp Pulse Resp BP Pulse Ox 04/27/20 15:35 97.7 F 94 18 112/64 97 04/27/20 13:43 98 108/68 95 04/27/20 12:00 97.0 F 98 18 108/68 95 04/27/20 08:13 108 H 114/58 L 04/27/20 08:12 108 H 114/58 L 04/27/20 07:49 97.6 F 55 20 114/58 L 92 04/27/20 03:17 98.5 F 101 H 16 112/58 L 90 L 04/26/20 23:08 98.6 F 100 18 107/57 L 90 L 04/26/20 19:40 99.1 F 99 18 109/52 L 91 L Body Mass Index 48.8 Const: General: no acute distress Resp: Effort & Inspection: normal respiratory effort and able to speak in complete sentences Auscultation: clear to auscultation bilaterally Cardio: Rate: regular rate Rhythm: regular rhythm Heart sounds: no murmurs Extrem: Other: L short arm splint, distally neurovascularly intact Objective Data Current Medications Generic Name Dose Route Start Last Admin Trade Name Freq PRN Reason Stop Dose Admin Allopurinol 100 mg 04/24/20 09:00 04/27/20 08:14 Allopurinol 100 Mg Tablet PO 100 mg BID [facility] Administration Cyanocobalamin 100 mcg 04/24/20 09:00 04/27/20 08:13 Cyanocobalamin (Vitamin B-12) 100 Mcg Tablet PO 100 mcg DAILY [facility] Administration Gabapentin 300 mg 04/24/20 15:00 04/27/20 15:17 Gabapentin 300 Mg Capsule PO 300 mg TID [facility] Administration Heparin Sodium (Porcine) 5,000 unit 04/25/20 01:39 Heparin Sodium,Porcine 5,000 Unit/Ml Vial IVPUSH BOLUS PRN Based on PTT results Heparin Sodium (Porcine) 5,000 unit 04/26/20 18:00 04/27/20 11:07 Heparin Sodium,Porcine 5,000 Unit/Ml Vial SUBCUT 5,000 unit Q8H [facility] Administration Hydroxyzine HCl 25 mg 04/24/20 16:26 04/27/20 11:10 Hydroxyzine Hcl 25 Mg Tablet PO 25 mg QID PRN Administration Anxiety Metoprolol Succinate 12.5 mg 04/26/20 14:15 04/27/20 08:12 Metoprolol Succinate Er 12.5 Mg Halftab.Er.24h PO 12.5 mg DAILY [facility] Administration Protocol Nystatin 1 appl 04/27/20 15:00 04/27/20 15:17 Nystatin Powder 15 Gm Bottle TOPICAL 1 appl TID [facility] Administration Protocol Omeprazole 20 mg 04/24/20 09:00 04/27/20 08:22 Omeprazole 20 Mg/10 Ml Susp.Recon PO Not Given BID [facility] Oxycodone HCl 5 mg 04/25/20 09:52 04/27/20 12:52 Oxycodone Hcl Immed Release 5 Mg Tablet PO 5 mg Q4H PRN Administration Pain, Moderate (Pain Scale 4-6 Senna/Docusate Sodium 2 tab 04/27/20 12:45 04/27/20 12:57 Sennosides/Docusate Sodium Tablet PO 2 tab BID PRN Administration constipation Sodium Chloride 3 ml 04/24/20 08:00 04/27/20 15:18 0.9 % Sodium Chloride Flush 3 Ml Syringe IVFLUSH 3 ml QSHIFT [facility] Administration Spironolactone 25 mg 04/24/20 09:00 04/27/20 08:13 Spironolactone 25 Mg Tablet PO 25 mg DAILY [facility] Administration Protocol Thiamine HCl 100 mg 04/25/20 09:00 04/27/20 08:14 Thiamine Hcl 100 Mg Tablet PO 100 mg DAILY [facility] Administration Vitamin D 25 mcg 04/24/20 09:00 04/27/20 08:12 Cholecalciferol (Vitamin D3) 25 Mcg Tablet PO 25 mcg DAILY [facility] Administration Labs CBC & Chem 7: 04/27/20 05:12 04/27/20 05:12 Labs: Laboratory Results - last 24 hr 04/27/20 04/27/20 05:12 05:12 MCV 100.3 H MCH 32.6 MCHC 32.5 RDW 14.8 Plt Count 121 L MPV 11.3 Immature Gran % (Auto) 0.3 Neut % (Auto) 73.1 H Lymph % (Auto) 15.1 L Gaston % (Auto) 9.3 Eos % (Auto) 1.6 Baso % (Auto) 0.6 Lymph # (Auto) 1.1 L Gaston # (Auto) 0.7 Eos # (Auto) 0.1 Baso # (Auto) 0.0 Abs Immat Gran (auto) 0.02 Absolute Neuts (auto) 5.2 Absolute Nucleated RBC 0.000 Nucleated RBC % (auto) 0.0 Anion Gap 13 Estim Creat Clear Calc 49.0 Estimated GFR 42 Random Glucose 116 H Calcium 6.7 L Microbiology Microbiology Results: Microbiology 04/26/20 11:29 Blood - Venous Blood Culture - Preliminary No growth after 24 hours. 04/26/20 11:27 Blood - Venous Blood Culture - Preliminary No growth after 24 hours. 04/26/20 14:29 Urine clean catch - Clean Catch Midstream Urine Culture - Preliminary No growth to date. Progress Note: A&P (1) Stress-induced cardiomyopathy: Status: Acute (2) Distal radius fracture, left: Status: Acute Assessment and Plan: [place] [id number] Hospitalist - Progress Note Signed Patient: Jahaira Mon#: [id number] : 2Acct:[id number] Age/Sex: 69 / FADM Date: 04/24/20 Loc: [id number] of Service:04/24/[address]: Luc Patricio MD cc: ~ hospital d#4 69yo F with EtOH cirrhosis presented to hospital after mechanical fall, found to have angulated distal radius fx Tn-I elevated, found to have stress-induced cardiomyopathy 1. stress-induced cardiomyopathy - Tn-I trending down, started b-chana, to consider ASTRDI-I if BP room allows, will need Cardiology f/u; no operative intervention for wrist for now 2. distal radius fx - no operative intervention for now pending improvement in cardiac status. continue splint 3. fever, unknown source - ?related to fracture. no localizing sources of infection. got 1 dose empiric ceftriaxone. CXR, UA/UCx, BCx negative to date 4. EtOH cirrhosis - continue spironolactone 5. EtOH abuse - continue thiamine 6. dispo - PT recommends STR but pt refusing; revisit in am 7. VTE ppx - SCDs
[2020-04-28] MEDS: 0.9 % Sodium Chloride Flush 3 ML SYRINGE IVFLUSH ×3 (00:08→15:58)
[2020-04-28] MEDS: hydrOXYzine HCL 25 MG TABLET PO ×4 (00:09→20:51)
[2020-04-28] MEDS: Heparin Sodium,Porcine 5,000 UNIT/ML VIAL 5000 UNIT SUBCUT ×3 (02:45→17:35)
[2020-04-28] MEDS: oxyCODONE HCl Immed Release 5 MG TABLET PO ×4 (02:47→20:50)
[2020-04-28 03:40] VITALS: BP 112/63; PULSE 101; RESP 18; TEMP 36.8; O2SAT 96
[2020-04-28 08:00] VITALS: BP 100/57; PULSE 99; RESP 20; TEMP 36.6; O2SAT 92
[2020-04-28] MEDS: Spironolactone 25 MG TABLET PO (10:28)
[2020-04-28] MEDS: allopurinoL 100 MG TABLET PO ×2 (10:28→20:50)
[2020-04-28] MEDS: Thiamine HCL 100 MG TABLET PO (10:28)
[2020-04-28] MEDS: lisinopriL 2.5 MG TABLET PO (10:28)
[2020-04-28] MEDS: Cyanocobalamin (Vitamin B-12) 100 MCG TABLET PO (10:29)
[2020-04-28] MEDS: Gabapentin 300 MG CAPSULE PO ×3 (10:29→20:50)
[2020-04-28] MEDS: Metoprolol Succinate ER 12.5 MG HALFTAB.ER.24H PO (10:29)
[2020-04-28] MEDS: Cholecalciferol (Vitamin D3) 25 MCG TABLET PO (10:29)
[2020-04-28] MEDS: Nystatin Powder 15 GM BOTTLE 1 APPL TOPICAL (10:30)
[2020-04-28] MEDS: Sennosides/Docusate Sodium TABLET 2 TAB PO ×2 (10:41→20:51)
[2020-04-28 11:23] VITALS: BP 113/55; PULSE 99; RESP 20; TEMP 36.9; O2SAT 93
--- NOTE | 2020-04-28 13:28 | MHC.CM.PN ---
CM met patient at the bedside who is adamant she will not go to STR. 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 Referral made via allscripts. CM will continue to follow patient for discharge needs.
--- NOTE | 2020-04-28 13:33 | MHC.CM.PN ---
Looks like patient has already been accepted with [facility], [facility] referral cancelled. Patient updated
[2020-04-28 16:00] VITALS: BP 85/51; PULSE 94; RESP 16; TEMP 37; O2SAT 95
--- NOTE | 2020-04-28 16:17 | P.PNIM_ITS ---
Subjective Subjective Date of Service: 04/28/20 Interval History: C/o ongoing wrist pain and insists on getting it repaired No further fever Concerned about disturbing hallucinations during attempted reduction in ED when she got ketamine Review of Systems General - no fevers or chills Cardiovascular - no chest pain Respiratory - chronic dyspnea. no cough Abdominal- no abdominal pain, nausea, vomiting, diarrhea Physical Exam Vital Signs: Vital Signs: Vital Signs Temp Pulse Resp BP Pulse Ox 04/28/20 16:00 98.6 F 94 16 85/51 L 95 04/28/20 11:23 98.5 F 99 20 113/55 L 93 04/28/20 08:00 97.8 F 99 20 100/57 L 92 04/28/20 03:40 98.2 F 101 H 18 112/63 96 04/27/20 23:20 98.2 F 97 18 101/61 98 04/27/20 19:16 97 F 90 18 116/65 98 Body Mass Index 48.8 Neck: Neck: Yes supple Resp: Effort & Inspection: normal respiratory effort Auscultation: clear to auscultation bilaterally Cardio: Rate: regular rate Rhythm: regular rhythm Heart sounds: no murmurs Peripheral pulses: Peripheral pulses 2+ throughout GI: Inspection: Yes normal to inspection Palpation (GI): Soft to palpation and nontender Extrem: Other: LUE in splint Objective Data Current Medications Generic Name Dose Route Start Last Admin Trade Name Freq PRN Reason Stop Dose Admin Allopurinol 100 mg 04/24/20 09:00 04/28/20 10:28 Allopurinol 100 Mg Tablet PO 100 mg BID [facility] Administration Cyanocobalamin 100 mcg 04/24/20 09:00 04/28/20 10:29 Cyanocobalamin (Vitamin B-12) 100 Mcg Tablet PO 100 mcg DAILY [facility] Administration Gabapentin 300 mg 04/24/20 15:00 04/28/20 15:02 Gabapentin 300 Mg Capsule PO 300 mg TID [facility] Administration Heparin Sodium (Porcine) 5,000 unit 04/25/20 01:39 Heparin Sodium,Porcine 5,000 Unit/Ml Vial IVPUSH BOLUS PRN Based on PTT results Heparin Sodium (Porcine) 5,000 unit 04/26/20 18:00 04/28/20 10:27 Heparin Sodium,Porcine 5,000 Unit/Ml Vial SUBCUT 5,000 unit Q8H [facility] Administration Hydroxyzine HCl 25 mg 04/24/20 16:26 04/28/20 15:58 Hydroxyzine Hcl 25 Mg Tablet PO 25 mg QID PRN Administration Anxiety Lisinopril 2.5 mg 04/28/20 09:00 04/28/20 10:28 Lisinopril 2.5 Mg Tablet PO 2.5 mg DAILY [facility] Administration Protocol Metoprolol Succinate 12.5 mg 04/26/20 14:15 04/28/20 10:29 Metoprolol Succinate Er 12.5 Mg Halftab.Er.24h PO 12.5 mg DAILY [facility] Administration Protocol Nystatin 1 appl 04/27/20 15:00 04/28/20 16:07 Nystatin Powder 15 Gm Bottle TOPICAL Not Given TID [facility] Protocol Omeprazole 20 mg 04/24/20 09:00 04/28/20 10:30 Omeprazole 20 Mg/10 Ml Susp.Recon PO 20 mg BID [facility] Administration Oxycodone HCl 5 mg 04/25/20 09:52 04/28/20 15:06 Oxycodone Hcl Immed Release 5 Mg Tablet PO 5 mg Q4H PRN Administration Pain, Moderate (Pain Scale 4-6 Senna/Docusate Sodium 2 tab 04/27/20 12:45 04/28/20 10:41 Sennosides/Docusate Sodium Tablet PO 2 tab BID PRN Administration constipation Sodium Chloride 3 ml 04/24/20 08:00 04/28/20 15:58 0.9 % Sodium Chloride Flush 3 Ml Syringe IVFLUSH 3 ml QSHIFT [facility] Administration Spironolactone 25 mg 04/24/20 09:00 04/28/20 10:28 Spironolactone 25 Mg Tablet PO 25 mg DAILY [facility] Administration Protocol Thiamine HCl 100 mg 04/25/20 09:00 04/28/20 10:28 Thiamine Hcl 100 Mg Tablet PO 100 mg DAILY [facility] Administration Vitamin D 25 mcg 04/24/20 09:00 04/28/20 10:29 Cholecalciferol (Vitamin D3) 25 Mcg Tablet PO 25 mcg DAILY [facility] Administration Labs CBC & Chem 7: 04/27/20 05:12 04/27/20 05:12 Microbiology Microbiology Results: Microbiology 04/26/20 11:29 Blood - Venous Blood Culture - Preliminary No growth after 48 hours. 04/26/20 11:27 Blood - Venous Blood Culture - Preliminary No growth after 48 hours. 04/26/20 14:29 Urine clean catch - Clean Catch Midstream Urine Culture - Final Progress Note: A&P (1) Stress-induced cardiomyopathy: Status: Acute (2) Distal radius fracture, left: Status: Acute Assessment and Plan: hospital d#5 69yo F with EtOH cirrhosis presented to hospital after mechanical fall, found to have angulated distal radius fx Tn-I elevated, found to have stress-induced cardiomyopathy 1. stress-induced cardiomyopathy - Tn-I trending down - started metoprolol - will start low-dose lisinopril but may need to hold if BP does not tolerate - needs Cardiology f/u 2. left distal radius fx - discussed with Anesthesia, Cardiology, and Orthopedics. given she is high risk and surgery is not an emergency, even closed reduction with local/regional block is not recommended due to the cardiac risk 3. fever, unknown source - ?related to fracture. no localizing sources of infection. got 1 dose empiric ceftriaxone. CXR, UA/UCx, BCx negative to date 4. EtOH cirrhosis - continue spironolactone 5. EtOH abuse - continue thiamine 6. dispo - pt refusing PT evaluation but concerns about sending her home where she lives alone and will need a walker; will revisit in am 7. VTE ppx - SCDs
[2020-04-28] MEDS: polyethylene glycoL 3350 17 GM POWD.PACK PO (18:08)
[2020-04-28 19:41] VITALS: BP 105/63; PULSE 97; RESP 18; TEMP 37; O2SAT 99
[2020-04-28 23:48] VITALS: BP 156/76; PULSE 107; RESP 18; TEMP 37; O2SAT 93
[2020-04-29] VITALS (7 sets, daily range): BP systolic 94–148; BP diastolic 56–72; PULSE 93–101; RESP 18–20; TEMP 36.1–37; O2SAT 94–100
[2020-04-29] MEDS: Heparin Sodium,Porcine 5,000 UNIT/ML VIAL 5000 UNIT SUBCUT ×3 (04:36→17:04)
[2020-04-29] MEDS: bisacodyL 10 MG SUPP.RECT PR (04:37)
[2020-04-29] MEDS: 0.9 % Sodium Chloride Flush 3 ML SYRINGE IVFLUSH ×3 (04:37→17:06)
[2020-04-29] MEDS: oxyCODONE HCl Immed Release 5 MG TABLET PO ×2 (04:46→15:10)
[2020-04-29] MEDS: hydrOXYzine HCL 25 MG TABLET PO ×2 (04:47→15:10)
--- NOTE | 2020-04-29 08:37 | MHC.PIE ---
P: Patient c/o constipation, per patient, no BM for 2 weeks. Patient started on stool regimen - received PRN Senna from prev RN. Requested suppository from 11p-3a RN. I: Dulcolax supp given @ 9587. P: Patient c/o pain in left arm and stomach. Requesting hydroxyzine & oxycodone. I: Hydroxyzine & oxycodone 5mg given @ 5896. E: Patient continues to be anxious about bowel movement - attempted to go on commode and bed light multiple times with no effect. Patient reports partial relief, sleeping on and off when reassessed.
[2020-04-29] MEDS: Nystatin Powder 15 GM BOTTLE 1 APPL TOPICAL ×3 (09:20→21:07)
[2020-04-29] MEDS: Cholecalciferol (Vitamin D3) 25 MCG TABLET PO (09:21)
[2020-04-29] MEDS: allopurinoL 100 MG TABLET PO ×2 (09:21→21:07)
[2020-04-29] MEDS: Thiamine HCL 100 MG TABLET PO (09:21)
[2020-04-29] MEDS: Cyanocobalamin (Vitamin B-12) 100 MCG TABLET PO (09:26)
[2020-04-29] MEDS: Gabapentin 300 MG CAPSULE PO ×3 (09:26→21:07)
[2020-04-29] MEDS: Metoprolol Succinate ER 12.5 MG HALFTAB.ER.24H PO (09:42)
[2020-04-29] MEDS: Spironolactone 25 MG TABLET PO (09:42)
--- NOTE | 2020-04-29 14:53 | PM.IMPN ---
Subjective Subjective Date of Service: 04/29/20 Interval History: Wondering about a hard cast that Dr Nickerson mentioned yesterday Per Jose Bales, plan for casting in clinic in 1-2 wk Not safe for d/c home- lives alone- now willing to go to [facility], reluctantly, but recognizing it is the safest option at this point C/o constipation Review of Systems General - no fevers or chills Cardiovascular - no chest pain Respiratory - chronic dyspnea. no cough Abdominal- no abdominal pain, nausea, vomiting; endorses constipation Physical Exam Vital Signs: Vital Signs: Vital Signs Temp Pulse Resp BP Pulse Ox 04/29/20 12:00 97.0 F 101 H 20 121/64 100 04/29/20 09:42 93 94/57 L 04/29/20 07:52 97.5 F 95 18 115/60 97 04/29/20 05:45 18 04/29/20 04:00 98.6 F 94 20 148/72 H 98 04/28/20 23:48 98.6 F 107 H 18 156/76 H 93 04/28/20 19:41 98.6 F 97 18 105/63 99 04/28/20 16:00 98.6 F 94 16 85/51 L 95 Body Mass Index 48.8 Neck: Neck: Yes supple Resp: Effort & Inspection: normal respiratory effort Auscultation: clear to auscultation bilaterally Cardio: Rate: regular rate Rhythm: regular rhythm Heart sounds: no murmurs Peripheral pulses: Peripheral pulses 2+ throughout GI: Inspection: Yes normal to inspection Palpation (GI): Soft to palpation and nontender Extrem: Other: LUE in splint Const: General: no acute distress Objective Data Current Medications Generic Name Dose Route Start Last Admin Trade Name Rahulq PRN Reason Stop Dose Admin Allopurinol 100 mg 04/24/20 09:00 04/29/20 09:21 Allopurinol 100 Mg Tablet PO 100 mg BID [facility] Administration Cyanocobalamin 100 mcg 04/24/20 09:00 04/29/20 09:26 Cyanocobalamin (Vitamin B-12) 100 Mcg Tablet PO 100 mcg DAILY [facility] Administration Gabapentin 300 mg 04/24/20 15:00 04/29/20 09:26 Gabapentin 300 Mg Capsule PO 300 mg TID [facility] Administration Heparin Sodium (Porcine) 5,000 unit 04/25/20 01:39 Heparin Sodium,Porcine 5,000 Unit/Ml Vial IVPUSH BOLUS PRN Based on PTT results Heparin Sodium (Porcine) 5,000 unit 04/26/20 18:00 04/29/20 09:21 Heparin Sodium,Porcine 5,000 Unit/Ml Vial SUBCUT 5,000 unit Q8H [facility] Administration Hydroxyzine HCl 25 mg 04/24/20 16:26 04/29/20 04:47 Hydroxyzine Hcl 25 Mg Tablet PO 25 mg QID PRN Administration Anxiety Lactulose 20 gm 04/29/20 14:21 Lactulose 20 Gm/30 Ml Solution PO Q12H PRN Constipation Lisinopril 2.5 mg 04/28/20 09:00 04/29/20 09:43 Lisinopril 2.5 Mg Tablet PO Not Given DAILY [facility] Protocol Metoprolol Succinate 12.5 mg 04/26/20 14:15 04/29/20 09:42 Metoprolol Succinate Er 12.5 Mg Halftab.Er.24h PO 12.5 mg DAILY [facility] Administration Protocol Nystatin 1 appl 04/27/20 15:00 04/29/20 09:20 Nystatin Powder 15 Gm Bottle TOPICAL 1 appl TID [facility] Administration Protocol Omeprazole 20 mg 04/30/20 06:30 Omeprazole 20 Mg Capsule.Dr PO DAILY@0630 [facility] Oxycodone HCl 5 mg 04/25/20 09:52 04/29/20 04:46 Oxycodone Hcl Immed Release 5 Mg Tablet PO 5 mg Q4H PRN Administration Pain, Moderate (Pain Scale 4-6 Polyethylene Glycol 17 gm 04/28/20 16:20 04/29/20 12:21 Polyethylene Glycol 3350 17 Gm Powd.Pack PO Not Given DAILY [facility] Senna/Docusate Sodium 2 tab 04/27/20 12:45 04/28/20 20:51 Sennosides/Docusate Sodium Tablet PO 2 tab BID PRN Administration constipation Sodium Chloride 3 ml 04/24/20 08:00 04/29/20 09:35 0.9 % Sodium Chloride Flush 3 Ml Syringe IVFLUSH 3 ml QSHIFT [facility] Administration Spironolactone 25 mg 04/24/20 09:00 04/29/20 09:42 Spironolactone 25 Mg Tablet PO 25 mg DAILY [facility] Administration Protocol Thiamine HCl 100 mg 04/25/20 09:00 04/29/20 09:21 Thiamine Hcl 100 Mg Tablet PO 100 mg DAILY [facility] Administration Vitamin D 25 mcg 04/24/20 09:00 04/29/20 09:21 Cholecalciferol (Vitamin D3) 25 Mcg Tablet PO 25 mcg DAILY [facility] Administration Labs CBC & Chem 7: 04/27/20 05:12 04/27/20 05:12 Microbiology Microbiology Results: Microbiology 04/26/20 11:29 Blood - Venous Blood Culture - Preliminary No growth after 48 hours. 04/26/20 11:27 Blood - Venous Blood Culture - Preliminary No growth after 48 hours. 04/26/20 14:29 Urine clean catch - Clean Catch Midstream Urine Culture - Final Progress Note: A&P (1) Stress-induced cardiomyopathy: Status: Acute (2) Distal radius fracture, left: Status: Acute Assessment and Plan: hospital d#6 69yo F with EtOH cirrhosis presented to hospital after mechanical fall, found to have angulated distal radius fx Tn-I elevated, found to have stress-induced cardiomyopathy 1. stress-induced cardiomyopathy - Tn-I peaked, decreased - started metoprolol - d/c lisinopril due to low BP - needs Cardiology f/u 2. left distal radius fx - too high risk for ORIF and even closed reduction under block and per Ortho surgery is not emergency. plan f/u with Ortho in 1-2 wk and casting then 3. fever, unknown source - ?related to fracture. no localizing sources of infection. got 1 dose empiric ceftriaxone. CXR, UA/UCx, BCx negative to date, fever did not recur 4. EtOH cirrhosis - continue spironolactone 5. EtOH abuse - continue thiamine 6. dispo - now willing to go to [facility] but needs PT eval 7. VTE ppx - SCDs
[2020-04-29] MEDS: Lactulose 20 GM/30 ML SOLUTION PO (15:12)
--- NOTE | 2020-04-29 15:27 | MHC.CM.PN ---
CM spoke with patient who is now willing to go to [facility]. Patient choices are [facility], [facility] and [facility]. Referrals made via allscripts.
[2020-04-30] VITALS (10 sets, daily range): BP systolic 105–120; BP diastolic 55–62; PULSE 88–92; RESP 16–20; TEMP 36.3–36.7; O2SAT 92–96
[2020-04-30] MEDS: 0.9 % Sodium Chloride Flush 3 ML SYRINGE IVFLUSH ×2 (02:19→09:04)
[2020-04-30] MEDS: oxyCODONE HCl Immed Release 5 MG TABLET PO ×3 (03:56→14:11)
[2020-04-30] MEDS: hydrOXYzine HCL 25 MG TABLET PO ×2 (04:00→14:14)
[2020-04-30] MEDS: Heparin Sodium,Porcine 5,000 UNIT/ML VIAL 5000 UNIT SUBCUT ×2 (04:08→09:19)
[2020-04-30] MEDS: Omeprazole 20 MG CAPSULE.DR PO (05:57)
[2020-04-30 06:59] LABS: Hematocrit 34.9 % (37-47); Hemoglobin 11.6 g/dl (12.0-16.0); Mean Corpuscular HGB Conc 33.2 g/dl (31.0-35.0); Mean Corpuscular Hemoglobin 32.6 pg (27.0-33.0); Mean Platelet Volume 11.4 fL (9.4-12.3); Platelet Count 127 X10*3/uL (160-400); Red Blood Count 3.56 X10*6/uL (4.20-5.50); Red Cell Distribution Width 14.5 % (11.0-16.0); White Blood Count 7.8 X10*3/uL (4.8-10.8)
[2020-04-30] MEDS: Cholecalciferol (Vitamin D3) 25 MCG TABLET PO (09:04)
[2020-04-30] MEDS: lisinopriL 2.5 MG TABLET PO (09:05)
[2020-04-30] MEDS: Thiamine HCL 100 MG TABLET PO (09:06)
[2020-04-30] MEDS: Gabapentin 300 MG CAPSULE PO (09:06)
[2020-04-30] MEDS: Spironolactone 25 MG TABLET PO (09:06)
[2020-04-30] MEDS: allopurinoL 100 MG TABLET PO (09:07)
[2020-04-30] MEDS: Metoprolol Succinate ER 12.5 MG HALFTAB.ER.24H PO (09:07)
[2020-04-30] MEDS: Cyanocobalamin (Vitamin B-12) 100 MCG TABLET PO (09:07)
[2020-04-30] MEDS: Nystatin Powder 15 GM BOTTLE 1 APPL TOPICAL (09:08)
--- NOTE | 2020-04-30 12:40 | P.DS_ITS ---
DS: Providers Provider Date of admission: 04/24/20 04:50 Primary care physician: Brooke Kimbrough MD Admitting clinician: Tori Askew Attending physician on admission: Luc Patricio Consults: 04/24/20 05:09 Consult to Physician Routine Consulting Provider: Preston Urbano Reason for consultation: NSTEMI Has provider been notified: No 04/25/20 13:20 Consult to Orthopedics Routine Consulting Provider: Jose Bales Reason for consultation: wrist fracture, was to f/u on Sunday in clinic, now admitted 04/28/20 11:10 Consult to Physician Routine Consulting Provider: Doug Stanton Reason for consultation: Local/regional block for closed reduction of wrist? Pt has takjuniorubkyaw Attending physician on discharge: Jus Gallegos Discharging clinician: Jus Gallegos DS: Transfer Hospital Acceptance Reason for Transfer: short-term rehabiltation Name of Facility: [facility] DS: Diagnosis Discharge Diagnosis (1) Stress-induced cardiomyopathy: Status: Acute (2) Distal radius fracture, left: Status: Acute (3) Non-ST elevation (NSTEMI) myocardial infarction: Status: Acute DS: Summary Hospital Course Hospital Course: from the admission history and physical by hospitalist Tori Salvador, 04/24/20: Chief Complaint: Fall 69 y/o female who presented from home s/p fall. Per history provided by the patient, 2 days ago (On night), tripped and fell on the floor hitting her left hand on impact. Patient reports that initially felt a mild discomfort but swelling and pain has been worsening since then for what decided to come today for further evaluation. Initial vitals showed tachycadia of 101-135 bpm, BP 119/65 mmHg. Patient is known to have a hx of liver disease secondary to alcohol abuse and Kidney disease. Initial blood work showed troponin of 411, initial EKG shows Low voltage QRS, Right axis deviation, no evidence of any acute changes. Patient was awaiting for case management to address placement but given elevated troponin medicine is called for admission. Orthopedic consulted for left wrist fracture identified on imaging. Patient seen and examined at the bedside, ROS as above otherwise negative. Physical exam positive for left wrist splint. Patient laying down comfortably in bed in no acute distress. the patient was admitted to the [facility] [place]. Cardiology was consulted. She had no angina or equivalent symptoms. Heparinization was deferred given her cirrhosis. Ultimately, she was diagnosed with stress-induced cardiomyopathy. She was started on neural hormonal blockade with beta-chana; there was not enough blood pressure room to start ASTRID-inhibitor. Spironolactone, which she takes for cirrhosis-related edema, was continued. unfortunately, she was deemed too high risk for anesthesia for any type of reduction of distal radius fracture. She was placed in a splint and will follow-up with orthopedics for casting next week. She should also follow-up with cardiology to address her cardiomyopathy. She had no signs or symptoms of decompensated heart failure. Due to balance deficits and difficulty standing up with being not weight-bearing on her left wrist, we recommended strongly that she go to short-term rehabilitation. Status at Discharge Overall status at discharge: patient is not back to baseline Time Spent with Patient Time attestation: Total time spent providing and/or coordinating discharge services: Time spent: Greater than 30 minutes Physical Exam Vital Signs: Vital Signs: Vital Signs Temp Pulse Resp BP Pulse Ox 04/30/20 12:28 92 117/55 L 96 04/30/20 11:29 97.8 F 92 20 117/55 L 96 04/30/20 09:07 89 113/58 L 04/30/20 09:06 89 113/58 L 04/30/20 09:05 89 113/58 L 04/30/20 07:58 97.4 F 88 18 120/55 L 95 04/30/20 03:48 98.1 F 88 16 116/57 L 94 04/30/20 03:02 98.1 F 88 16 116/57 L 94 04/30/20 00:00 97.6 F 92 16 107/62 92 04/29/20 18:54 98.1 F 93 18 114/61 94 04/29/20 15:32 98.5 F 94 18 102/56 L 96 Body Mass Index 48.8 General: No acute distress Neck: Neck: Yes supple Resp: Effort & Inspection: normal respiratory effort Auscultation: clear to auscultation bilaterally Cardio: Rate: regular rate Rhythm: regular rhythm Heart sounds: no murmurs Peripheral pulses: Peripheral pulses 2+ throughout GI: Inspection: Yes normal to inspection Palpation (GI): Soft to palpation and nontender Extrem: Other: LUE in splint, distally neurovascularly intact DS: Data Data Completed and Pending Labs on day of discharge: TTE 04/26/20: - The left ventricular systolic function is mild to moderately decreased. The visually estimated ejection fraction is between 40-45%. - Left ventricle globally hypokinetic, but base is more contractile than the mid ventricle and apex. Suggestive of stress-induced cardiomyopathy. - Visually right ventricular appears hypokinetic, more so towards the apex. - No obvious valvular pathology seen on this study. Plain films 04/23/20: 1. Left wrist. Comminuted intra-articular displaced fracture of the distal radius and ulna. 2. Left elbow. No acute abnormality. Laboratory Tests 04/24/20 04/24/20 04/24/20 02:00 02:00 02:00 WBC 8.8 RBC 3.80 L Hgb 12.4 Hct 37.7 MCV 99.2 H MCH 32.6 MCHC 32.9 RDW 14.2 Plt Count 125 L MPV 10.4 Immature Gran % (Auto) 0.5 H Neut % (Auto) 81.6 H Lymph % (Auto) 9.7 L [place] % (Auto) 7.8 Eos % (Auto) 0.1 Baso % (Auto) 0.3 Lymph # (Auto) 0.9 L [place] # (Auto) 0.7 Eos # (Auto) 0.0 Baso # (Auto) 0.0 Abs Immat Gran (auto) 0.04 H Absolute Neuts (auto) 7.2 Absolute Nucleated RBC 0.000 Nucleated RBC % (auto) 0.0 PT INR PTT (Heparin Protocol) D-Dimer Sodium 138 Potassium 4.3 Chloride 96 Carbon Dioxide 32 H Anion Gap 14 BUN 17 H Creatinine 1.39 Estim Creat Clear Calc 44.4 Estimated GFR 38 Random Glucose 105 Lactic Acid Calcium 7.3 L Total Bilirubin 0.9 Direct Bilirubin 0.6 H AST 22 ALT 14 Alkaline Phosphatase 167 H Total Creatine Kinase 92 Troponin I High Sens 411.7 H Total Protein 5.7 L Albumin 3.4 L Urine Color Urine Appearance Urine pH Ur Specific Fowler Urine Protein Urine Glucose (UA) Urine Ketones Urine Blood Urine Nitrite Ur Leukocyte Esterase Urine RBC Urine WBC Ur Squamous Epith Cells Urine Bacteria 04/24/20 04/24/20 04/24/20 05:21 09:57 12:54 WBC 7.5 RBC 3.55 L Hgb 11.6 L Hct 35.6 L MCV 100.3 H MCH 32.7 MCHC 32.6 RDW 14.3 Plt Count 112 L MPV 10.4 Immature Gran % (Auto) 0.4 Neut % (Auto) 77.1 H Lymph % (Auto) 14.0 L [place] % (Auto) 8.1 Eos % (Auto) 0.1 Baso % (Auto) 0.3 Lymph # (Auto) 1.1 L [place] # (Auto) 0.6 Eos # (Auto) 0.0 Baso # (Auto) 0.0 Abs Immat Gran (auto) 0.03 Absolute Neuts (auto) 5.8 Absolute Nucleated RBC 0.000 Nucleated RBC % (auto) 0.0 PT 14.0 H INR 1.2 H PTT (Heparin Protocol) D-Dimer 388 Sodium Potassium Chloride Carbon Dioxide Anion Gap BUN Creatinine Estim Creat Clear Calc Estimated GFR Random Glucose Lactic Acid Calcium Total Bilirubin Direct Bilirubin AST ALT Alkaline Phosphatase Total Creatine Kinase Troponin I High Sens 1334.2 H D Total Protein Albumin Urine Color Urine Appearance Urine pH Ur Specific Fowler Urine Protein Urine Glucose (UA) Urine Ketones Urine Blood Urine Nitrite Ur Leukocyte Esterase Urine RBC Urine WBC Ur Squamous Epith Cells Urine Bacteria 04/24/20 04/25/20 04/25/20 16:15 06:02 06:07 WBC 9.4 RBC 3.66 L Hgb 12.0 Hct 37.0 MCV 101.1 H MCH 32.8 MCHC 32.4 RDW 14.5 Plt Count 108 L MPV 10.4 Immature Gran % (Auto) 0.4 Neut % (Auto) 84.3 H Lymph % (Auto) 7.9 L [place] % (Auto) 6.7 Eos % (Auto) 0.4 Baso % (Auto) 0.3 Lymph # (Auto) 0.8 L [place] # (Auto) 0.6 Eos # (Auto) 0.0 Baso # (Auto) 0.0 Abs Immat Gran (auto) 0.04 H Absolute Neuts (auto) 8.0 Absolute Nucleated RBC 0.000 Nucleated RBC % (auto) 0.0 PT INR PTT (Heparin Protocol) D-Dimer Sodium Potassium Chloride Carbon Dioxide Anion Gap BUN Creatinine Estim Creat Clear Calc Estimated GFR Random Glucose Lactic Acid Calcium Total Bilirubin Direct Bilirubin AST ALT Alkaline Phosphatase Total Creatine Kinase Troponin I High Sens 1914.3 H 1354.1 H Total Protein Albumin Urine Color Urine Appearance Urine pH Ur Specific Fowler Urine Protein Urine Glucose (UA) Urine Ketones Urine Blood Urine Nitrite Ur Leukocyte Esterase Urine RBC Urine WBC Ur Squamous Epith Cells Urine Bacteria 04/25/20 04/25/20 04/25/20 06:07 06:07 06:07 WBC Cancelled RBC Cancelled Hgb Cancelled Hct Cancelled MCV Cancelled MCH Cancelled MCHC Cancelled RDW Cancelled Plt Count Cancelled MPV Cancelled Immature Gran % (Auto) Neut % (Auto) Lymph % (Auto) [place] % (Auto) Eos % (Auto) Baso % (Auto) Lymph # (Auto) [place] # (Auto) Eos # (Auto) Baso # (Auto) Abs Immat Gran (auto) Absolute Neuts (auto) Absolute Nucleated RBC Cancelled Nucleated RBC % (auto) Cancelled PT 15.0 H INR 1.3 H PTT (Heparin Protocol) 79.4 H D-Dimer Sodium 138 Potassium 4.1 Chloride 96 Carbon Dioxide 33 H Anion Gap 13 BUN 19 H Creatinine 1.28 Estim Creat Clear Calc 48.2 Estimated GFR 41 Random Glucose 111 Lactic Acid Calcium 7.0 L Total Bilirubin Direct Bilirubin AST ALT Alkaline Phosphatase Total Creatine Kinase Troponin I High Sens Total Protein Albumin Urine Color Urine Appearance Urine pH Ur Specific Fowler Urine Protein Urine Glucose (UA) Urine Ketones Urine Blood Urine Nitrite Ur Leukocyte Esterase Urine RBC Urine WBC Ur Squamous Epith Cells Urine Bacteria 04/25/20 04/25/20 04/25/20 08:52 10:51 18:20 WBC RBC Hgb Hct MCV MCH MCHC RDW Plt Count MPV Immature Gran % (Auto) Neut % (Auto) Lymph % (Auto) [place] % (Auto) Eos % (Auto) Baso % (Auto) Lymph # (Auto) [place] # (Auto) Eos # (Auto) Baso # (Auto) Abs Immat Gran (auto) Absolute Neuts (auto) Absolute Nucleated RBC Nucleated RBC % (auto) PT INR PTT (Heparin Protocol) 142.6 H* D 51.1 L D 71.0 D D-Dimer Sodium Potassium Chloride Carbon Dioxide Anion Gap BUN Creatinine Estim Creat Clear Calc Estimated GFR Random Glucose Lactic Acid Calcium Total Bilirubin Direct Bilirubin AST ALT Alkaline Phosphatase Total Creatine Kinase Troponin I High Sens Total Protein Albumin Urine Color Urine Appearance Urine pH Ur Specific [place] Urine Protein Urine Glucose (UA) Urine Ketones Urine Blood Urine Nitrite Ur Leukocyte Esterase Urine RBC Urine WBC Ur Squamous Epith Cells Urine Bacteria 04/26/20 04/26/20 04/26/20 06:05 06:05 11:26 WBC 6.9 RBC 3.72 L Hgb 12.2 Hct 37.1 MCV 99.7 H MCH 32.8 MCHC 32.9 RDW 14.6 Plt Count 111 L MPV 10.6 Immature Gran % (Auto) Neut % (Auto) Lymph % (Auto) [place] % (Auto) Eos % (Auto) Baso % (Auto) Lymph # (Auto) [place] # (Auto) Eos # (Auto) Baso # (Auto) Abs Immat Gran (auto) Absolute Neuts (auto) Absolute Nucleated RBC 0.000 Nucleated RBC % (auto) 0.0 PT 14.6 H INR 1.2 H PTT (Heparin Protocol) D-Dimer Sodium Potassium Chloride Carbon Dioxide Anion Gap BUN Creatinine Estim Creat Clear Calc Estimated GFR Random Glucose Lactic Acid 1.0 Calcium Total Bilirubin Direct Bilirubin AST ALT Alkaline Phosphatase Total Creatine Kinase Troponin I High Sens Total Protein Albumin Urine Color Urine Appearance Urine pH Ur Specific Fowler Urine Protein Urine Glucose (UA) Urine Ketones Urine Blood Urine Nitrite Ur Leukocyte Esterase Urine RBC Urine WBC Ur Squamous Epith Cells Urine Bacteria 04/26/20 04/27/20 04/27/20 14:29 05:12 05:12 WBC 7.1 RBC 3.47 L Hgb 11.3 L Hct 34.8 L MCV 100.3 H MCH 32.6 MCHC 32.5 RDW 14.8 Plt Count 121 L MPV 11.3 Immature Gran % (Auto) 0.3 Neut % (Auto) 73.1 H Lymph % (Auto) 15.1 L [place] % (Auto) 9.3 Eos % (Auto) 1.6 Baso % (Auto) 0.6 Lymph # (Auto) 1.1 L [place] # (Auto) 0.7 Eos # (Auto) 0.1 Baso # (Auto) 0.0 Abs Immat Gran (auto) 0.02 Absolute Neuts (auto) 5.2 Absolute Nucleated RBC 0.000 Nucleated RBC % (auto) 0.0 PT INR PTT (Heparin Protocol) D-Dimer Sodium 136 Potassium 4.1 Chloride 95 L Carbon Dioxide 32 H Anion Gap 13 BUN 19 H Creatinine 1.26 Estim Creat Clear Calc 49.0 Estimated GFR 42 Random Glucose 116 H Lactic Acid Calcium 6.7 L Total Bilirubin Direct Bilirubin AST ALT Alkaline Phosphatase Total Creatine Kinase Troponin I High Sens Total Protein Albumin Urine Color YELLOW Urine Appearance HAZY Urine pH 7.5 Ur Specific Fowler 1.010 Urine Protein NEG Urine Glucose (UA) NEG Urine Ketones NEG Urine Blood NEG Urine Nitrite NEG Ur Leukocyte Esterase TRACE H Urine RBC 0-2 Urine WBC 0 Ur Squamous Epith Cells 4+ Urine Bacteria NONE 04/30/20 05:29 WBC 7.8 RBC 3.56 L Hgb 11.6 L Hct 34.9 L MCV 98.0 MCH 32.6 MCHC 33.2 RDW 14.5 Plt Count 127 L MPV 11.4 Immature Gran % (Auto) Neut % (Auto) Lymph % (Auto) [place] % (Auto) Eos % (Auto) Baso % (Auto) Lymph # (Auto) [place] # (Auto) Eos # (Auto) Baso # (Auto) Abs Immat Gran (auto) Absolute Neuts (auto) Absolute Nucleated RBC 0.000 Nucleated RBC % (auto) 0.0 PT INR PTT (Heparin Protocol) D-Dimer Sodium Potassium Chloride Carbon Dioxide Anion Gap BUN Creatinine Estim Creat Clear Calc Estimated GFR Random Glucose Lactic Acid Calcium Total Bilirubin Direct Bilirubin AST ALT Alkaline Phosphatase Total Creatine Kinase Troponin I High Sens Total Protein Albumin Urine Color Urine Appearance Urine pH Ur Specific [place] Urine Protein Urine Glucose (UA) Urine Ketones Urine Blood Urine Nitrite Ur Leukocyte Esterase Urine RBC Urine WBC Ur Squamous Epith Cells Urine Bacteria Discharge Plan Discharge Patient Disposition: Xfer SNF Referrals: Brooke Kimbrough MD [Primary Care Provider] - Gilson Nickerson MD [Physician] - 1 Week (05/03/20 12:45 with Carolann.) Preston Urbano MD [Physician] - 2 Weeks ([employer] will call you for a 2 week follow up appointment.) Discharge Medications: New sennosides-docusate sodium [Senna Plus] 8.6-50 mg Tablet 2 tab PO BID PRN (Reason: constipation) Qty: 60 RF: 0 oxycodone 5 mg Tablet 5 mg PO Q4H PRN (Reason: Pain, Moderate (Pain Scale 4-6) Qty: 18 RF: 0 lactulose 20 gram/30 mL Solution 20 g PO Q12H PRN (Reason: Constipation) Qty: 1200 RF: 0 metoprolol succinate 25 mg tablet extended release 24 hr 12.5 mg PO DAILY Qty: 15 RF: 0 Continued cyanocobalamin (vitamin B-12) [Vitamin B-12] 100 mcg tablet 1 tab PO DAILY RF: 0 allopurinol 100 mg tablet 1 tab PO BID RF: 0 spironolactone 25 mg tablet 1 tab PO DAILY RF: 0 omeprazole 20 mg capsule,delayed release(DR/EC) 1 cap PO BID RF: 0 hydroxyzine HCl 25 mg tablet 25 mg PO QID PRN (Reason: Anxiety) RF: 0 furosemide 20 mg tablet 1 tab PO BID RF: 0 cholecalciferol (vitamin D3) 25 mcg (1,000 unit) tablet 25 mcg PO DAILY RF: 0 thiamine mononitrate (vit B1) [Vitamin B-1 (mononitrate)] 100 mg tablet 1 tab PO DAILY RF: 0 gabapentin 300 mg capsule 1 cap PO TID RF: 0 Discontinued tramadol 50 mg tablet 50 - 100 mg PO Q6-8H PRN (Reason: Pain) RF: 0 Discharge Orders: Discharge Order (Routine); Ordered 04/30/20 Ordered By: Jus Gallegos Diet: advance to your usual diet Activity on Discharge: EFRAIN villanueva Patient Instructions: Wrist Fracture in Adults (DC) Visit Report Forms: Patient Portal Discharge page Care Plan Goals: fracture healing resolution of cardiomyopathy/NSTEMI Health Concerns: fracture, cardiomyopathy/NSTEMI Plan of Treatment: stress cardiomyopathy (takotsubo syndrome)/NSTEMI - too high risk for surgery now - take beta-chana metoprolol succinate 12.5mg daily - follow up with Dr Urbano at [facility] in 2 weeks (you will be called with an appointment): Address: [address] [place] [id number] wrist fracture - splint - non-weight bearing on L wrist - follow up with Dr Nickerson/LIAN Tyson at [facility] 05/03/20 at 12:45pm: Address: [address] [place] [address] [place] [address]
--- NOTE | 2020-04-30 13:08 | MHC.CM.PN ---
Patient will be discharged today to [facility] at 3pm today via BLS transport.
[2020-04-30 14:06] LABS: SARS COV2 PCR INHOUSE NEGATIVE (Negative)
[2020-05-03 11:08] LABS: Glucose, Whole Blood 239 mg/dL (60-115)
== END 2020-04-30 15:15 | disposition skilled nursing facility (03) | DRG 281 ==
LOC: HO.ED 04-24 03:17 → HO.IMC 04-24 05:01
PROVIDERS: Family Medicine; Internal Medicine; Nurse Practitioner Family; Admitting Provider Internal Medicine; Emergency Provider Emergency Medicine; PCP Family Medicine; Visit Provider Family Medicine
DX: I51.81 Takotsubo syndrome (principal); I21.A1 Myocardial infarction type 2; S52.502A Unspecified fracture of the lower end of left radius, initial encounter for closed fracture; S52.602A Unspecified fracture of lower end of left ulna, initial encounter for closed fracture; K70.30 Alcoholic cirrhosis of liver without ascites; F10.10 Alcohol abuse, uncomplicated; W01.0XXA Fall on same level from slipping, tripping and stumbling without subsequent striking against object, initial encounter; Y93.9 Activity, unspecified; Y92.9 Unspecified place or not applicable; Y99.9 Unspecified external cause status; M10.9 Gout, unspecified; Z79.899 Other long term (current) drug therapy
CPT/HCPCS: 36415; 71045; 73070; 73090; 73100; 80048; 80076; 81001; 81003; 82550; 82947; 83605; 84484; 85025; 85027; 85379; 85610; 85730; 87040; 87086; 87635; 93005; 93306; 96361; 96372; 96374; 96375; 97162; 97530; 99285; 99291; J2270; J2405; Q9957

== ENCOUNTER 2020-05-03 | Outpatient (REF) | payer SELFPAY ==
[2020-05-03 05:58] LABS: Hematocrit 34.8 % (37-47); Mean Corpuscular HGB Conc 31.6 g/dl (31.0-35.0); Mean Corpuscular Hemoglobin 31.3 pg (27.0-33.0); Mean Corpuscular Volume 98.9 fL (80-98); Mean Platelet Volume 11.4 fL (9.4-12.3); Platelet Count 131 X10*3/uL (160-400); Red Blood Count 3.52 X10*6/uL (4.20-5.50); Red Cell Distribution Width 14.3 % (11.0-16.0); White Blood Count 5.3 X10*3/uL (4.8-10.8)
[2020-05-03 06:25] LABS: Alanine Aminotransferase 8 U/L (0-31); Albumin Level 2.8 g/dL (3.5-5.0); Alkaline Phosphatase 117 U/L (39-117); Anion Gap 13 (12-20); Aspartate Amino Transferase 16 U/L (5-31); Bilirubin Total 0.5 mg/dL (0.0-1.0); Blood Urea Nitrogen 28 mg/dL (9-16); Calcium 7.4 mg/dL (8.4-10.2); Carbon Dioxide 26 mmol/L (22-29); Chloride 101 mmol/L (96-108); Estimated Glomerular Filt Rate 33; Glucose Random 92 mg/dL (60-115); Potassium 4.3 mmol/l (3.3-5.1); Sodium 136 mmol/L (135-145); Total Protein 4.8 g/dL (6.5-8.0)
--- NOTE | 2020-05-03 12:56 | XR_ITS ---
EXAMINATION: XR WRIST, LEFT CLINICAL INFORMATION: Follow-up fracture COMPARISON: Previous x-ray 04/23/2020 TECHNIQUE: Two views of the left wrist. FINDINGS: There is a comminuted impacted transverse fracture of the distal radius. There is dorsal displacement of the distal radius with respect to the more proximal shaft. There is a comminuted impacted fracture of the distal ulna. There is dorsal displacement of the distal ulna respect to the more proximal shaft. Fractures appear intra-articular with the radiocarpal joint. There is significant overlying soft tissue swelling. There is a volar splint. IMPRESSION: Comminuted impacted displaced fractures of the left distal radius and ulna.
== END 2020-05-03 00:01 ==
LOC: HO.MMNH1L
PROVIDERS: Visit Provider Family Medicine
DX: S52.532A Colles' fracture of left radius, initial encounter for closed fracture (principal); I21.4 Non-ST elevation (NSTEMI) myocardial infarction
CPT/HCPCS: 25600; 29075; 36415; 73100; 80053; 85027

== ENCOUNTER → 2020-05-18 12:59 | Outpatient (BNVA) | payer MEDICAID, MEDICARE, SELFPAY | PROVIDERS: PCP Neurological Surgery; Visit Provider Orthopaedic Surgery | DX: Z76.89 Persons encountering health services in other specified circumstances (principal) ==

== ENCOUNTER → 2020-05-18 12:59 | Outpatient (BNVA) | payer MEDICARE, MEDICAID, SELFPAY | PROVIDERS: PCP Neurological Surgery; Visit Provider Orthopaedic Surgery ==

== ENCOUNTER → 2020-05-21 11:12 | Outpatient (BNVA) | payer MEDICAID, MEDICARE, SELFPAY | PROVIDERS: PCP Family Medicine; Visit Provider Orthopaedic Surgery | DX: Z76.89 Persons encountering health services in other specified circumstances (principal) ==

== ENCOUNTER 2020-05-24 | Outpatient (REF) | payer MEDICARE, MEDICAID, SELFPAY ==
[2020-05-24 05:15] LABS: Hematocrit 31.2 % (37-47); Hemoglobin 9.9 g/dl (12.0-16.0); Mean Corpuscular HGB Conc 31.7 g/dl (31.0-35.0); Mean Corpuscular Hemoglobin 30.7 pg (27.0-33.0); Mean Corpuscular Volume 96.9 fL (80-98); Mean Platelet Volume 11.2 fL (9.4-12.3); Platelet Count 124 X10*3/uL (160-400); Red Blood Count 3.22 X10*6/uL (4.20-5.50); Red Cell Distribution Width 13.9 % (11.0-16.0); White Blood Count 7.3 X10*3/uL (4.8-10.8)
[2020-05-24 05:39] LABS: Anion Gap 10 (12-20); Blood Urea Nitrogen 19 mg/dL (9-16); Calcium 7.9 mg/dL (8.4-10.2); Carbon Dioxide 30 mmol/L (22-29); Chloride 101 mmol/L (96-108); Estimated Glomerular Filt Rate 34; Glucose Random 101 mg/dL (60-115); Potassium 4.2 mmol/l (3.3-5.1); Sodium 137 mmol/L (135-145)
== END 2020-05-24 00:01 | disposition home or self-care (01) ==
LOC: HO.MMNH1L
PROVIDERS: Visit Provider Family Medicine
DX: I21.4 Non-ST elevation (NSTEMI) myocardial infarction (principal)
CPT/HCPCS: 36415; 80048; 85027

== ENCOUNTER 2020-06-25 08:06 | Outpatient (REF) | payer MEDICARE, MEDICAID, SELFPAY | END 2020-06-25 08:07 | disposition home or self-care (01) | LOC: HO.HOSX 08:06 | PROVIDERS: Visit Provider Physician Assistant | DX: Z13.89 Encounter for screening for other disorder (principal) ==

== ENCOUNTER 2020-07-23 13:34 | Outpatient (REF) | payer MEDICARE, MEDICAID, SELFPAY ==
--- NOTE | 2020-07-23 13:40 | XR_ITS ---
EXAMINATION: XR WRIST, LEFT CLINICAL INFORMATION: Left wrist fracture COMPARISON: Previous x-rays most recent April 2020 TECHNIQUE: PA, lateral, and oblique views of the left wrist. FINDINGS: There is a transverse fracture of the left distal radius. Alignment appears unchanged with dorsal subluxation of the distal radius with respect to the more proximal shaft and impaction. Fracture line is still seen. There is new surrounding bony callus formation. There is a healing nondisplaced ulnar styloid fracture with surrounding bony callus formation. No new fracture is seen. There are degenerative changes at the first PENITENTIARY joint. The scapholunate joint appears widened. There may be soft tissue swelling. XR/XR wrist LT min 3V IMPRESSION: No change in alignment of the left transverse displaced distal radius fracture. New bony callus formation. Healing nondisplaced ulnar styloid fracture. Widened scapholunate joint.
== END 2020-07-23 13:35 | disposition home or self-care (01) ==
LOC: HO.XRAY 13:34
PROVIDERS: Visit Provider Physician Assistant
DX: S52.532A Colles' fracture of left radius, initial encounter for closed fracture (principal)
CPT/HCPCS: 73110; 99212

== ENCOUNTER → 2020-11-04 13:14 | Outpatient (BNVA) | payer MEDICARE, MEDICAID, SELFPAY | PROVIDERS: Visit Provider Internal Medicine | DX: Z13.89 Encounter for screening for other disorder (principal) | CPT/HCPCS: Q3014 ==

== ENCOUNTER 2020-11-05 13:53 | Outpatient (REF) | payer MEDICARE, MEDICAID, SELFPAY ==
[2020-11-05 15:14] LABS: COVID-19 Test Negative (Negative)
== END 2020-11-05 13:54 | disposition home or self-care (01) ==
LOC: HO.LAB 13:53
PROVIDERS: Visit Provider Internal Medicine
DX: Z20.822 Contact with and (suspected) exposure to COVID-19 (principal)
CPT/HCPCS: 36415; 87635; C9803

== ENCOUNTER → 2020-11-25 11:24 | Outpatient (REF) | payer MEDICARE, MEDICAID, SELFPAY ==
--- NOTE | 2020-11-25 11:30 | CA_ITS ---
Transthoracic Echocardiogram Patient (Last, First, Middle): Jahaira Mon M Gender: Female Date of : 1950 Age: 70 Procedure Date: 11/25/2020 Procedure Type: Transthoracic Echocardiogram Location: OP Height: 157.48 cm Weight: 97.52 kg BSA: 1.97 m2 Heart Rate: bpm BP: 140 / 70 mmHg Case Filler: VANDANA Barrera MD: Preston Urbano MD Senior Medical Transcriptionist: Rakesh Ramos MD Symptoms: I51.81 - Takotsubo syndrome Study Quality: Technically Difficult ECG Rhythm: Sinus Conclusions: - 1. Technically limited study and patient refused to use definity 2. Left ventricle systolic function appears normal, however regional wall motion abnormality is difficult to appreciate on this study. There is impaired relaxation pattern 3. Normal cardiac valvular Doppler 4. Normal RV systolic pressure 5. No pericardial effusion Findings Procedure Information The patient declines contrast. Left Ventricle Normal left ventricular size, thickness, and systolic function. The visually estimated ejection fraction is between 55-60%. Regional wall motion abnormalities can not be excluded due to suboptimal endocardial definition. Spectral Doppler is indicative of an impaired relaxation filling pattern. E/E prime ratio is between 8 and 15 consistent with indeterminate filling pressures. Right Ventricle Normal right ventricular cavity size. Atria The left atrium is normal in size. There is lipomatous hypertrophy of the interatrial septum. Interatrial shunt cannot be excluded. The right atrium was not well visualized. Aortic Valve The aortic valve was not well visualized. There is no aortic valve stenosis. There is no aortic valve regurgitation. Mitral Valve The mitral valve was not well visualized. There is trace mitral valve regurgitation. There is no mitral valve stenosis. Pulmonic Valve The pulmonic valve was not well visualized. Tricuspid Valve The tricuspid valve was not well visualized. There is trace tricuspid valve regurgitation. The right ventricular systolic pressure is normal. There is no evidence of pulmonary hypertension. Great Vessels All visible segments of the aorta are normal in size. The pulmonary artery was not well visualized. Venous The inferior vena cava is normal in size and collapses greater than 50% with inspiration. Pericardium/Pleural There is no evidence of pericardial effusion. Prior Study Comparison Changes noted compared to prior study dated: 04/26/2020. LV systolic function appears to have improved Measurements 2D Linear Measurements IVSd: 0.92 0.6-0.9/0.6-1.0 cm LVIDd: 4.21 3.9-5.3/4.2-5.9 cm LVIDd Index: 2.14 2.4-3.2/2.2-3.1 cm/m2 LVIDs: 2.92 2.0-3.6 cm LVPWd: 1.11 0.7-1.1 cm Ao Root: 3.70 2.1-3.5 cm LA Diam: 3.30 2.7-3.8/3.0-4.0 cm LAIDs Index: 1.68 1.5-2.3 cm/m2 LV Mass: 175.21 67-162/88-224 g LV Mass Index: 88.94 43-95/49-115 g/m2 LVOT Diam: 2.10 3.0+(-)1.3 cm Mitral Valve MV Pk E: 0.84 MV PK A: 1.18 MV Decel Time: 291.00 E/A: 0.70 E'Lateral: 5.87 E'Medial: 6.53 E/E' Med: 12.80 E/E' Lat: 14.30 PHT: 85.00 MVA PHT: 2.59 Decel Emery: 2.88 Aortic Valve AoV Pk Umesh: 1.23 AoV Mn Umesh: 0.91 AoV VTI: 0.26 AoV Pk Grad: 6.00 Aov Mn Grad: 4.00 LEE Cont.VTI: 2.41 LVOT LVOT Pk Umesh: 0.85 LVOT Mn Umesh: 0.54 LVOT VTI: 0.18 LVOT Pk Grad: 3.00 LVOT Mn Grad: 1.00 LVOT Diam: 2.10 LVOT Area: 3.46 Diastolic Function MV Pk E: 0.84 MV Pk A: 1.18 E/A: 0.70 E'Medial: 6.53 E/E' Med: 12.80 E' Laterial: 5.87 E/E' Lat: 14.30 Tricuspid Valve TR Pk Umesh: 1.85 TR Pk Grad: 14.00 RA Press: 3.00 RVSP: 17.00 Great Vessels Aorta Ao Root-2D: 3.70 2.0-3.7 cm Ao Asc: 3.10 2.1-3.4 cm Ao Arch: 2.70 Updated in Other Vendor System with Status of Final Rakesh Ramos MD electronically signed on 11/26/2020 3:25:50 PM with status of Final
== END ==
LOC: HO.CARD 11:24
PROVIDERS: Visit Provider Internal Medicine
DX: I51.81 Takotsubo syndrome (principal)
CPT/HCPCS: 93306

== ENCOUNTER → 2020-11-26 10:06 | Outpatient (REF) | payer MEDICARE, MEDICAID, SELFPAY ==
--- NOTE | ~2020-11-26 | NM_ITS ---
Dobutamine Myocardial perfusion study Indication: NSTEMI, cardiomyopathy, assess for coronary disease and ischemia Technique: The patient was brought in for a dobutamine myocardial perfusion study on 11/26/2020 and dobutamine was injected intravenously per protocol to maximum dose of 30 mcg/kg/min. Within a minute of this injection 30 mCi of sestamibi was given intravenously. Images were obtained using the SPECT gamma camera interlaced with the gating device. Images were obtained in supine position. Resting perfusion study was performed on 11/29/2020. Patient was administered 30 mCi of sestamibi intravenously at rest. Images were then obtained in supine position. Total DLP 159mGy-cm. Images were processed with the software and compared side to side in short axis, horizontal long axis and vertical long axis views. Findings: Raw acquisition was reviewed. Arms by the patient's side. The stress perfusion study showed no significant perfusion abnormality. Both uncorrected as well as CT attenuation corrected images were reviewed. The gated study shows normal LV systolic function with calculated LVEF of 51%. Visually this appears higher. Cavity is normal in size. The gated study shows normal wall thickening and contraction of segments. Resting study shows mildly diminished tracer uptake in the mid to distal inferolateral wall that improves with CT attenuation correction suggesting diaphragmatic artifact. Gating at rest reveals normal wall motion with ejection fraction at 58%. The findings are consistent with no definite reversible or fixed perfusion abnormality. NM/NM aliya perf SPECT rest & str Impression: 1. Myocardial perfusion imaging study shows likely normal myocardial perfusion. No definitive evidence of any ischemia or infarction. 2. Gated LVEF is 51% during stress and 58% during rest; visually, LVEF during stress appears higher than from automated calculation. EKG component of the test reported separately.
--- NOTE | 2020-11-26 10:09 | CA_ITS ---
Acquisition Time: 2020-11-26 10:18:07 Total Exercise Time: 00:15:13 Test Indications: Ischemia Evaluation Medications: FUROSEMIDE GABEPENTIN METOPROLOL OMEPRAZOLE HYDROXYZINE ALLOPURINOL Protocol: DOBUTAMINE Max HR: 134 BPM 88% of Pred: 151 BPM Max BP: 150/068 mmHG Max Work Load: 1.0 METS Pharmacological stress test using Dobutamine, started at 5 mcg up to 30 mcg. HR up to 130 . Pt tolerated well, denies any anginal sx, EKG with occ. PAC's, non-diagnostic for ischemia. Nuclear images to follow. Normotensive response to test. Test reviewed with Dr. Batres. Referred By: Preston Urbano Overread By: Marysol Umanzor NP
== END ==
LOC: HO.CARD 10:06
PROVIDERS: Visit Provider Internal Medicine
DX: I21.4 Non-ST elevation (NSTEMI) myocardial infarction (principal)
CPT/HCPCS: 78452; 93016; 93017; 93018; J1250

== ENCOUNTER → 2020-12-15 15:12 | Outpatient (BNVA) | payer MEDICARE, MEDICAID, SELFPAY | PROVIDERS: PCP Family Medicine; Visit Provider Internal Medicine | DX: I21.4 Non-ST elevation (NSTEMI) myocardial infarction (principal); I51.81 Takotsubo syndrome | CPT/HCPCS: Q3014 ==

== ENCOUNTER 2021-05-18 06:26 | Outpatient (REF) | payer SELFPAY ==
[2021-05-18 06:42] LABS: Ammonia 43 umol/L (13-55)
[2021-05-18 06:43] LABS: Hematocrit 27.6 % (37.0-47.0); Hemoglobin 9.1 g/dl (12.0-16.0); Mean Corpuscular Hemoglobin 34.6 pg (27.0-33.0); Mean Corpuscular Volume 104.9 fL (80.0-98.0); Mean Platelet Volume 11.6 fL (9.4-12.3); Platelet Count 120 X10*3/uL (160-400); Red Blood Count 2.63 X10*6/uL (4.20-5.50); Red Cell Distribution Width 17.7 % (11.0-16.0); White Blood Count 15.6 X10*3/uL (4.8-10.8)
[2021-05-18 06:48] LABS: NRBC Pct Auto 3.3 /100WBC (0.0-0.2)
[2021-05-18 06:52] LABS: Alanine Aminotransferase 75 U/L (0-31); Albumin Level 4.3 g/dL (3.5-5.0); Alkaline Phosphatase 327 U/L (39-117); Anion Gap 19 (12-20); Aspartate Amino Transferase 48 U/L (5-31); Bilirubin Total 2.5 mg/dL (0.0-1.0); Blood Urea Nitrogen 50 mg/dL (9-16); Calcium 9.8 mg/dL (8.4-10.2); Carbon Dioxide 23 mmol/L (22-29); Chloride 108 mmol/L (96-108); Estimated Glomerular Filt Rate 27; Glucose Random 116 mg/dL (60-115); Potassium 3.7 mmol/L (3.3-5.1); Sodium 146 mmol/L (135-145); Total Protein 6.2 g/dL (6.5-8.0)
[2021-05-18 07:16] LABS: Band Neutrophils Percent 2 % (3-5); Lymphocytes Absolute Manual 0.8 X10*3/uL (1.2-4.9); Lymphocytes Percent Manual 5 % (20-40); Metamyelocytes Absolute 0.5 X10*3/uL; Metamyelocytes Percent 3 %; Monocytes Absolute Manual 0.6 X10*3/uL (0.1-1.2); Monocytes Percent Manual 4 % (2-11); Myelocytes Absolute 0.2 X10*/uL; Myelocytes Percent 1 %; Neutrophils Absolute Manual 13.6 X10*3/uL (2.0-8.3); Neutrophils Percent Manual 85 % (45-73); Nucleated Red Blood Cells 2 /100WBC (0-0)
[2021-05-18 07:17] LABS: Macrocytosis 1+ (5-14) /OIF; RBC Morphology NOTED; Stomatocytes 1+ (5-14) /OIF
[2021-05-18 07:18] LABS: Target Cells 1+ (5-14) /OIF
[2021-05-18 08:07] LABS: Platelet Estimate SLIGHTLY DECREASED (NORMAL); Platelet Morphology Comment NORMAL
== END 2021-05-18 06:27 | disposition home or self-care (01) ==
LOC: HO.MMNH1L 06:26
PROVIDERS: Visit Provider Family Medicine
DX: N17.9 Acute kidney failure, unspecified (principal); K74.60 Unspecified cirrhosis of liver; F10.99 Alcohol use, unspecified with unspecified alcohol-induced disorder
CPT/HCPCS: 36415; 80053; 82140; 85007; 85027

== ENCOUNTER 2021-05-20 07:46 | Outpatient (REF) | payer SELFPAY ==
[2021-05-20 08:24] LABS: Ammonia 65 umol/L (13-55)
[2021-05-20 08:53] LABS: Alanine Aminotransferase 64 U/L (0-31); Albumin Level 3.7 g/dL (3.5-5.0); Alkaline Phosphatase 358 U/L (39-117); Anion Gap 18 (12-20); Aspartate Amino Transferase 58 U/L (5-31); Bilirubin Direct 1.7 mg/dL (0.0-0.5); Bilirubin Total 2.4 mg/dL (0.0-1.0); Blood Urea Nitrogen 45 mg/dL (9-16); Calcium 8.8 mg/dL (8.4-10.2); Carbon Dioxide 26 mmol/L (22-29); Chloride 109 mmol/L (96-108); Estimated Glomerular Filt Rate 29; Glucose Random 100 mg/dL (60-115); Potassium 3.2 mmol/L (3.3-5.1); Sodium 150 mmol/L (135-145); Total Protein 5.4 g/dL (6.5-8.0)
[2021-05-20 09:15] LABS: T4 Thyroxine < 3.0 ug/dL (4.5-12.0); Thyroid Stimulating Hormone 5.78 uIU/mL (0.32-4.0)
== END 2021-05-20 07:47 | disposition home or self-care (01) ==
LOC: HO.MMNH1L 07:46
PROVIDERS: Visit Provider Family Medicine
DX: N18.9 Chronic kidney disease, unspecified (principal); G93.41 Metabolic encephalopathy
CPT/HCPCS: 36415; 80048; 80076; 82140; 84436; 84443

== ENCOUNTER 2021-05-23 00:37 | Outpatient (REF) | payer MEDICARE, MEDICAID, SELFPAY | END 2021-05-23 00:38 | disposition home or self-care (01) | LOC: HO.MMNH1L 00:37 | PROVIDERS: Visit Provider Family Medicine | DX: Z13.89 Encounter for screening for other disorder (principal) ==